=== PATIENT | male | born 1945 | race Caucasian/White ===

== ENCOUNTER → 2023-10-14 10:45 | Outpatient (REF) | payer OTHER, SELFPAY | LOC: DHCBC MAIN 10:45 | PROVIDERS: ATTENDING PHYSICIAN Internal Medicine; FAMILY PHYSICIAN Family Medicine | DX: R00.0 Tachycardia, unspecified (principal); I35.0 Nonrheumatic aortic (valve) stenosis; I10 Essential (primary) hypertension | CPT/HCPCS: 93306 ==

== ENCOUNTER 2024-02-22 21:21 | Inpatient (IN) | payer OTHER, SELFPAY ==
[2024-02-22 18:13] VITALS: BP 143/89
[2024-02-22 18:22] VITALS: BP 150/92
--- NOTE | 2024-02-22 18:29 | ED.GENMED ---
History of Present Illness
General
Chief Complaint: Breathing Problem
Source: patient
Time Seen by Provider: 02/22/24 18:21
History of Present Illness
History of Present Illness:
78-year-old male with past medical history of aortic stenosis, hypertension, ani-nyisebr-hjfjsbhlh diabetes presenting to the emergency department for evaluation of exertional dyspnea and shortness of breath that started since 430 this morning
described to be waxing and waning but more constant over the last few hours and associated with some fatigue. Patient contacted his ct technologist office, Dr. Cantrell earlier this morning, and they report that the staff at the [facility] did not seem to
be too concerned so did not have any recommendations for the patient. He went to the dentist following this and took a nap upon getting home but when he awoke he felt more short of breath which is why he presented to the ER. Patient denies any
chest pain, diaphoresis, lower extremity edema, pleurisy or hemoptysis. He does note over the last few weeks he has had some very trace swelling in the bilateral ankles and also notes a very slight cough over the last couple of days as well but no
infectious symptoms.
Past History
Past History
ED Past Medical History: Cancer (SCC), HTN, NIDDM and Valvular disease
ED Past Surgical History: Other
Social History
Tobacco: Non-smoker
Alcohol: None
Drug: None
Personal:
Living: with family
Review of Systems
Review of Systems
All Other Systems: ROS reviewed and negative except as documented in HPI and ROS
Phy Exam
Physical Exam
Physical Exam:
GENERAL: Alert , in no apparent distress
EYE: conjunctiva clear
NECK: Supple
ENT: o/p clr, mmm.
CARDIAC: Tachycardic rate and rhythm with rates between 116 and 122 bpm, systolic murmur at the right second intercostal space
LUNGS: Clear breath sounds bilaterally, no acute respiratory distress, no wheezes/rales/rhonchi
NEUROLOGICAL: Alert and oriented
SKIN: Warm and dry, skin intact.
MUSCULOSKELETAL: well perfused. Very trace nonpitting edema to the bilateral ankles. No tenderness in bilateral gastrocnemius
PSYCH: Normal and appropriate interaction.
Scores
Heart Failure Risk
Heart Failure Risk Score: Not Applicable
Heart Score for Chest Pain Patients
STEMI patient?: Not applicable
Withdrawal Assessment of Alcohol
Withdrawal Assessment Completed?: Not applicable
Course
Orders/Labs/Results
Orders:
Orders
02/22/24 Breakfast
1800 calorie (15 carb) Diabetic
Fluid Restriction: 1200 mL/day (40 oz)
Diabetic Diet: Sodium, 2 Gram
Cholesterol Lowering
02/22/24 18:13
Electrocardiogram (*1) Urgent
Reason for Study: Shortness of Breath
EKG- Treatment ONCE
02/22/24 18:30
CT Chest Pe Study Urgent
Comment:
Reason For Exam: JADE, tachycardia
02/22/24 19:14
Basic Metabolic Panel Urgent
Complete Blood Count/With Diff Urgent
NT-proBNP Urgent
Troponin I Urgent
02/22/24 19:57
Furosemide [Lasix] 40 mg IV NOW STA
02/22/24 19:59
Heparin 4,000 units IV NOW STA
02/22/24 20:00
Heparin 40177 Units/250 ml 25,000 units in 250 ml IV PER PROTOCOL
Weight to be used for heparin protocol in kilograms (kg):: 85.1
Protocol:: Cardiac Tx/Acute Coronary
PTT Goal Range to be used:: PTT 73 to 111 seconds
Order type:: Initial
INITIAL Infusion Dose (UNITS/KG/hr) & then follow protocol:: 12 units/kg/hr
Infusion Dose in UNITS/hr & then follow protocol (UNITS/hr):: 1,000
INFUSION RATE in mL/hr & then follow protocol (mL/hr):: 10
PTT less than or equal to 64 seconds:: Increase rate by 200 units/hr (+ 2 mL/hr)
PTT 64.1 to 72.9 seconds:: Increase rate by 100 units/hr (+ 1 mL/hr)
PTT 73 to 111 seconds:: Target Range. No change in rate.
PTT 111.1 to 130.9 seconds:: Decrease rate by 100 units/hr (- 1 mL/hr)
PTT 131 to 199.9 seconds:: HOLD for 1 hr. Then decrease rate by 200 units/hr (- 2 mL/hr)
PTT greater than or equal to 200 seconds:: HOLD for 2 hrs & Notify Provider. Then decrease by 200 units/hr (-
2 mL/hr)
Lab follow-up:: Each change, PTT q6h until 2 consecutive are therapeutic. Then PTT
daily.
Nursing to Place Non Medication Order As Directed
Physician Order: PTT 6 hours after initial start of Heparin infusion
Above order entered?: Yes
02/22/24 20:09
PTT Urgent
Comment: Obtain baseline before beginning heparin infusion if not already collected
02/22/24 20:35
Aspirin Chewable [Low Strength Aspirin] 324 mg PO NOW STA
02/22/24 20:53
Admit/Transfer Patient As Directed
Co-Sign Provider:
Level of Care: Inpatient admission
Assign to:: Telemetry
Physician / Group: brandie
Diagnosis: pulmonary edema
Reason for Telemetry: Subacute Heart Failure
Date to Stop Telemetry: 02/24/24
Time to Stop Telemetry: 11:00
Reason for Hospitalization: pulmonary edema
Expected length of stay greater than two midnights?: Yes
ELOS- Estimated Length of Stay in days: 3
I certify the patient meets the requirements for IP care: Yes
PRN Pain Medication Management As Directed
May give lesser potent ordered pain med per pt: Yes
preference::
Protocol:: Medication orders for pain may be administered in a
manner that supports deferring to patient preference
when the pt is:
- Requesting an ordered lesser potent pain medication.
Least to most potent pain medications are defined
as: acetaminophen < NSAID < tramadol < opioids
(morphine, oxycodone, hydromorphone).
- Requesting a lesser dose of the same medication IF
ORDERED.
- Requesting a less intrusive route of administration
if both routes are prescribed by the provider (PO <
IV).
02/22/24 20:55
Code Status As Directed
Resuscitation Status: Full Code
02/22/24 21:00
Flush (0.9% Sodium Chloride) [Flush (Nss)] See Dose Instructions IV PER PROTOCOL
02/22/24 21:58
Acetaminophen with Codeine [Tylenol #3] 1 tablet PO Q8H
Dextrose 50%-Water [Dextrose 50% Syringe] 12.5 grams IV [id number] PRN
Glucagon [GlucaGen] 1 mg IM PRN PRN
02/22/24 21:58
CARDIOLOGY CONSULT Routine
Consulting Provider: Shanda Valdes
Was physician already notified: Yes
HF DIETARY CONSULT Routine
HF EDUCATOR CONSULT Routine
Comment:
Heparin Protocol- PTT Orders As Directed
PTT per Heparin protocol: -Obtain CBC and baseline PTT - if not already collected.
-Obtain PTT 6 hours from start of infusion. Then, every 6 hours until 2 consecutive
PTT's are therapeutic. Then, PTT Daily.
-With each rate change, obtain PTT every 6 hours until 2 consecutive PTT's are
therapeutic. Then, PTT Daily.
Activity As Directed
Activity Level: As Tolerated
Bedside Glucose Monitoring As Directed
Frequency: AC&HS
Additional Instructions:: Change to q6h if pt on TPN, tube feeding or not eating
Intake/ Output As Directed
Frequency: Per unit guidelines
Notify MD As Directed
Notify physician if: PTT is greater than or equal to 200.
Patient Education As Directed
Type: CHF folder
Comment: give on admission. Document in Interdisciplinary Education record
Sleep Apnea Assessment by RN As Directed
Comment:
Physician Instructions:
Vital Signs As Directed
Frequency: Other
Additional Instructions:: Q12 or per unit guidelines if more frequent.
Weight As Directed
Frequency: Daily
Type of Scale: Standing Scale
Comment: Daily morning weight. If unable to stand, use balanced bed scale.
Weight As Directed
Frequency: Once
Type of Scale: Standing Scale
Comment: Upon Admission. If unable to stand, use balanced bed scale.
Pulse Ox/cont/shift [RESP] Routine
Quantity: 1
Special Instructions: Daily pulse oximetry at rest. If greater than 92% at rest also obtain pulse oximetry
while ambulating as tolerated.
Ot Eval And Treat Routine
Pt Eval And Treat Routine
Activity Level: As Tolerated
02/22/24 22:00
Aspirin Low Dose EC [Aspir Low (Enteric Coated)] 81 mg PO HS
Latanoprost [Xalatan Ophthalmic Solution] 1 drop BOTH EYES HS
simvastatin 40 mg PO HS
02/23/24 01:00
Troponin I Q6H
Comment: at admission & every 6 hours x 2 (3 total), ECG to be done with each level
02/23/24 06:00
Basic Metabolic Panel IN AM
Cardiovascular Evaluation IN AM
Complete Blood Count/No Diff IN AM
Glycohemoglobin (HgbA1c) IN AM
Klfxd-Bjft-Bnjmhdf IN AM
Magnesium IN AM
TSH Reflex To Free T4 IN AM
02/23/24 07:00
Troponin I Q6H
Comment: at admission & every 6 hours x 2 (3 total), ECG to be done with each level
02/23/24 07:30
Insulin Aspart Corrective Low [Novolog Flexpen-Low Resistance] See Protocol SC AC
02/23/24 08:00
Furosemide [Lasix] 40 mg IV BID AT 0800,1600
Repaglinide [Prandin] 2 mg PO DAILY
02/23/24 12:00
Venlafaxine Extended Release [Effexor Xr] 150 mg PO NOON
02/23/24 18:00
Cyanocobalamin [Vitamin B-12] 1,000 mcg PO QPM
02/24/24 06:00
Basic Metabolic Panel IN AM
Complete Blood Count/No Diff IN AM
Complete Blood Count/No Diff Q2D
Comment: notify provider: Platelet count < 130,000 or decrease by 50% from baseline
02/24/24 11:00
DC Protocol for Telemetry ONCE
02/25/24 06:00
Basic Metabolic Panel IN AM
Complete Blood Count/No Diff IN AM
02/26/24 06:00
Complete Blood Count/No Diff IN AM
Complete Blood Count/No Diff Q2D
Comment: notify provider: Platelet count < 130,000 or decrease by 50% from baseline
02/27/24 06:00
Complete Blood Count/No Diff IN AM
02/28/24 06:00
Complete Blood Count/No Diff Q2D
Comment: notify provider: Platelet count < 130,000 or decrease by 50% from baseline
03/01/24 06:00
Complete Blood Count/No Diff Q2D
Comment: notify provider: Platelet count < 130,000 or decrease by 50% from baseline
03/03/24 06:00
Complete Blood Count/No Diff Q2D
Comment: notify provider: Platelet count < 130,000 or decrease by 50% from baseline
03/05/24 06:00
Complete Blood Count/No Diff Q2D
Comment: notify provider: Platelet count < 130,000 or decrease by 50% from baseline
03/07/24 06:00
Complete Blood Count/No Diff Q2D
Comment: notify provider: Platelet count < 130,000 or decrease by 50% from baseline
03/09/24 06:00
Complete Blood Count/No Diff Q2D
Comment: notify provider: Platelet count < 130,000 or decrease by 50% from baseline
Abnormal Lab Results
02/22/24
19:14
RBC 3.86 L 10^6/uL
(4.70-6.10)
Hgb 12.4 L g/dL
(13.0-18.0)
Hct 37.5 L %
(39.0-52.0)
MCV 97.2 H fL
(80.0-94.0)
MCH 32.1 H pg
(27.0-31.0)
MPV 10.7 H fL
(7.4-10.4)
Absolute Lymphs (auto) 1.0 L 10^3/uL
(1.2-3.4)
Lymphocytes % 15.0 L %
(20.5-51.1)
Chloride 109 H mmol/L
(98-107)
Glucose 129 H mg/dl
(70-99)
Troponin I 0.098 H* ng/ml
02/22/24 19:14
02/22/24 19:14
Vital Signs
Initial and Last Documented VS:
Initial Vital Signs
Temp Pulse Resp BP Pulse Ox
98.6 F 120 24 143/89 97
02/22/24 18:13 02/22/24 18:13 02/22/24 18:13 02/22/24 18:13 02/22/24 18:13
Last Documented Vital Signs
Temp Pulse Resp BP Pulse Ox
98.6 F 124 32 114/62 94
02/22/24 18:13 02/22/24 21:15 02/22/24 21:15 02/22/24 20:05 02/22/24 21:15
Laborer Cheesemaking consulted with Physician
Laborer Cheesemaking consulted with physician?: Yes
Name of Physician Consulted: Екатерина
MDM/Problems Addressed
Differential Diagnosis Includes:
Atypical ACS, PE, CHF
MDM/Problems Addressed:
78-year-old male presenting to the emergency department for evaluation of shortness of breath that has been ongoing since 430 this morning, had been transient but now constant. Arrives to the ER tachycardic (patient reports this is normal for him)
and does appear somewhat dyspneic during his exam. Lungs clear. Will obtain CT of the chest given tachycardia and worsening exertional shortness of breath. EKG does show some ischemic changes in the lateral leads. Troponin ordered. Disposition
pending
Chronic conditions affecting care: Other (Aortic stenosis, tachycardia)
*Radiology
Radiology exam reviewed: radiology read reviewed
*Pulse Oximetry
Patient hypoxic: no
*EKG
Interpreted by ED Provider?: Yes
Comparison EKG: no comparison EKG present
Heart Rate: 120
Rate: tachycardiac
Rhythm: sinus
[place]: left axis deviation
Ischemia: T-wave inversion (Lateral leads)
*Butane Compressor Operator Interpretation
Rate: tachycardiac
Rhythm: sinus
*Critical Care Note
Total Time (30-74mins, 75-104mins- exclusive of procedures): 32
comment:
Critical care statement: A total of 32 minutes of critical care time was provided for this patient. This includes management of unstable vital signs, evaluation of the patient at bedside, reviewing the patient's pertinent medical records, discussion
with consultants, review of old EKGs and review of pertinent medical records. This time with separate from time utilized to perform the aforementioned documented procedures
Data Reviewed
Review of Other/Old Records Reveals: Records
Comment
Comment:
Patient with no previous EKGs on record however does have a echocardiogram done in October 2023 which shows ejection fraction of 55 to 60%. There is stage II diastolic dysfunction. There is also moderate to severe aortic stenosis.
Patient Management
Discussion with other providers: Hospitalist
Escalation/DeEscalation of care consider admission/obs:
Patient's labs reveal a BNP of greater than 10,000 and a troponin elevation of 0.098. Possibly demand ischemia however given patient's T wave inversions in the lateral leads cannot fully exclude NSTEMI. Heparin bolus and drip were ordered in
addition to 324 mg of aspirin and 40 mL of Lasix IV. Patient CT scan is negative for PE but does show significant pulmonary edema and bilateral pleural effusions. Patient to be admitted to hospitalist service. Cardiology to be consulted. He is
otherwise remains hemodynamically stable.
ED Attending Note
-
Portions of this chart may have been created with voice recognition software.� Occasional wrong word or��sound alike� substitutions may have occurred due to the inherent limitations of voice recognition software.
Discharge Plan
Departure
Patient Disposition: Admit
Date of Disposition: 02/22/24
Time of Disposition: 20:26
Presentation/result/management discussed w/ accepting MD/DO: Hospitalist
Discharge Problem:
Pulmonary edema, Acute non-ST elevation myocardial infarction (NSTEMI)
Interventions
Interventions:
*Risk Screen - Suicide Last Done: 02/22/24 19:08
*General Assessment Last Done: 02/22/24 19:08
*Neglect/Abuse Screening Last Done: 02/22/24 19:08
*ED COVID-19 Vaccine History Last Done: 02/22/24 19:08
ED- Cardiac Assessment Last Done: 02/22/24 19:08
ED- Pulmonary Assessment Last Done: 02/22/24 19:08
[2024-02-22 19:00] VITALS: BP 106/57
[2024-02-22 19:08] VITALS: BMI 23.4
[2024-02-22 19:20] LABS: % Basophils 0.6 % (0-2); % Eosinophils 3.2 % (0-6); % Immature Granulocytes 0.3 % (0-0.5); % Monocytes 8.6 % (1.7-9.3); % Neutrophils 72.3 % (42.2-75.2); Absolute Eosinophils 0.2 10^3/uL (0-0.7); Absolute Monocytes 0.6 10^3/uL (0.1-0.6); Hematocrit 37.5 % (39.0-52.0); Hemoglobin 12.4 g/dL (13.0-18.0); Mean Corp Hgb Conc. 33.1 g/dL (33.0-37.0); Mean Corpuscular Hgb 32.1 pg (27.0-31.0); Mean Corpuscular Volume 97.2 fL (80.0-94.0); Mean Platelet Volume 10.7 fL (7.4-10.4); Nucleated Red Blood Cells % 0 % (-); Platelet Count 235 10^3/uL (130-400); Red Blood Cell Count 3.86 10^6/uL (4.70-6.10); Red Cell Dist. Width 12.9 % (11.5-14.5)
[2024-02-22 19:41] LABS: Blood Urea Nitrogen 17 mg/dl (9-20); Calcium 8.7 mg/dl (8.4-10.2); Carbon Dioxide 25 mmol/L (22-30); Chloride 109 mmol/L (98-107); Estimated Creatinine Clearance 102 ml/min; Glucose 129 mg/dl (70-99); Potassium 4.5 mmol/L (3.5-5.1); Sodium 138 mmol/L (135-145); eGFR > 60.00
[2024-02-22 19:55] LABS: NT-proBNP 10100 pg/ml; Troponin I 0.098 ng/ml
[2024-02-22 20:05] VITALS: BP 114/62
--- NOTE | 2024-02-22 20:27 | HPS.HSE ---
Addendum entered and electronically signed by Franklin Garnett DO 02/22/24 21:29:
Patient seen and examined independently. Agree with findings and plan as set forth by LADONNA Zaman.
Patient is a 78y M with PMH significant for hypertension, DM-II and aortic stenosis who presents to ED complaining of SOB. Patient states that he has felt increasing SOB over the past 24 hours. His symptoms woek him from sleep around 4:30 AM.
He had recurrent dyspnea throughout the day with exertion and also this afternoon when trying to lie flat for a nap.
He denies any chest pain, palpitations, tightness, etc. He denies any LE edema, abdominal distention or weight gain.
Patient denies any prior h/o similar symptoms.
He is not on diuretic regimen as an outpatient.
Ass:
Acute HFpEF
Moderate - Severe Aortic Stenosis
Abnormal Troponin - Unclear Etiology
Benign Hypertension
DM-II
Dyslipidemia
Obesity due to excess calories
ROSALBA
Plan:
Admit for further evaluation and treatment.
Feeling better in the ED after IV Lasix.
Continue IV Lasix BID and follow daily weights, I/Os, etc.
Cardiology evaluation.
Had Echo done in October 2023 with normal LVEF and moderate - severe .
Follow troponin to peak.
? non-ischemic myocardial injury secondary to CHF versus ACS?
Started on IV heparin gtt in the ED.
ASA daily, continue statin, etc.
Follow for continued clinical improvement.
Stop pioglitazone permanently.
Hold other oral DM agents acutely.
Cover with SSI for now.
Would be good candidate for SGLT-2 inhibitor moving forward.
Original Note:
Family Physician
-
Family Physician: Simon Amaya
Chief Complaint
-
sob
History of Present Illness
78-year-old male with past medical history of aortic stenosis, hypertension, ndp-bswioxz-kbjshppot diabetes presenting to the emergency department for evaluation of exertional dyspnea and shortness of breath as well as orthopnea since this early
morning. sob woke him up. he tried to take nap this afternoon and he felt sob while sleeping. stated some ankle swelling. denied weight gain. sob worse with exertion. stated some mild cough with productive sputum. denied chest pain. denied fever,
chills, congestion. denied DEJESUS, dizzy or syncopal episode. denied abdominal pain,n,v,d. denied dysuria or hematuria.
elevated BNP and trop in ER. received Lasix in ER. also initiated on heparin drip. admitting for further management.
Medical History
Past Medical History
Past Medical History: Reports Other
Additional Past Medical History:
Dyslipidemia
Hypertension
Obstructive sleep apnea
Type 2 diabetes
Incisional hernia depression
Prostate cancer
Tongue cancer
Past Surgical History: Reports Other
Additional Past Surgical History:
Prostatectomy
Colon resection
Polypectomy
Squamous cell cancer of tongue resection
Cataract extraction
[place] teeth extraction
Social History
Tobacco: Non-smoker
Alcohol: None
Drug: None
Personal:
Living: With Family
Family History
Family History: Not pertinent
Allergies / Home Medications
Allergies reflects when Allergies were last updated in [facility].
Home Medications with original date entered in [facility]
Allergy/Medication List:
Allergies
Allergy/AdvReac Type Severity Reaction Status Date / Time
No Known Allergies Allergy Verified 02/22/24 18:12
Home Medications
acetaminophen 300 mg-codeine 30 mg tablet 1 tab PO Q8H 02/22/24
acetaminophen 500 mg tablet (Tylenol Extra Strength) 500 mg PO Q6HPRN PRN mild pain 02/22/24
aspirin 81 mg tablet,delayed release 81 mg PO HS 02/22/24
cyanocobalamin (vitamin B-12) 1,000 mcg tablet 1,000 mcg PO QPM 02/22/24
ergocalciferol (vitamin D2) 1,250 mcg (50,000 unit) capsule (Vitamin D2) 1,250 mcg PO WE 02/22/24
latanoprost 0.005 % eye drops 1 drp BOTH EYES HS 02/22/24
metformin 1,000 mg tablet 1,000 mg PO QPM 02/22/24
pioglitazone 45 mg tablet 45 mg PO DAILY 02/22/24
ramipril 2.5 mg capsule 2.5 mg PO DAILY 02/22/24
repaglinide 0.5 mg tablet 0.5 mg PO TIDPRN PRN blood sugar 02/22/24
repaglinide 2 mg tablet 2 mg PO DAILY 02/22/24
simvastatin 40 mg tablet 40 mg PO HS 02/22/24
testosterone 2 pump topical DAILY 02/22/24
venlafaxine 150 mg capsule,extended release 24 hr 150 mg PO NOON 02/22/24
Review of Systems
-
Constitutional: Reports No Symptoms
EENT: Reports No Symptoms
Respiratory: Reports Cough and Trouble Breathing
Cardiac: Reports No Symptoms
Abdomen/GI: Reports No Symptoms
: Reports No Symptoms
Musculoskeletal: Reports Edema (ankle edema)
Skin: Reports No Symptoms
Neurological: Reports No Symptoms
Endocrine: Reports No Symptoms
Hematologic/Lymphatic: Reports No Symptoms
Psych: Reports No Symptoms
Physical Exam
Vital Signs
Vital Signs
Temp Pulse Resp BP Pulse Ox
98.6 F 104 20 106/57 96
02/22/24 18:13 02/22/24 19:00 02/22/24 19:00 02/22/24 19:00 02/22/24 19:08
Physical Exam
General: Well Developed, Well Nourished and No Apparent Distress
HEENT: NormoCephalic, Moist mucous membranes and Atraumatic
Respiratory: Clear and Decreased Breath Sounds
Cardiac: S1/S2 and Regular Rhythm; No Murmur or Rub
GI: Soft, Non Tender, Non Distended and Normal Bowel Sounds; No Organomegaly
Rectal: Deferred by Provider
Musculoskeletal: No Clubbing, No Cyanosis and Other (ankle edema)
Skin: No Rash
Neuro: AO x 3 and Nonfocal/grossly intact
Psych: Calm
Laboratory Results
-
02/22/24 19:14
02/22/24 19:14
Laboratory Results
Troponin I 0.098 ng/ml H* 02/22/24 19:14
Data Reviewed
-
Diagnostic Radiology: Report Reviewed by me
Lab Data: Labs Reviewed by me
Impression/Plan
-
#sob likely from pulmonary edema
#hxt of
-BNP>[id number]
-chest CT negative for pulmonary embolism.Findings of pulmonary edema with bilateral pleural effusions.
-recent with ECHO with EF of 55-60%,moderate severe
-IV Lasix in ER
-Lasix 40 bid continued
-strict I &O
-daily weight
-fluid restriction
-cardiology consulted
#r/o NSTEMI
-denied chest pain
-trop 0.098
-eKg with sinus Tachycardia with T wave inversion
-on heparin drip
-trend trop
#type 2 Dm
-sliding scale
-hold metformin, Actos,repaglinide
-CHO diet
#essential htn
-ramipril continued with hold parameters
#HLD
-statin continued
#depression
-venlafaxine continued
#DVT prophylaxis
-heparin drip
#CODE status
-full code
[2024-02-22 20:29] LABS: APTT 29.8 Sec (23.4-35.0)
[2024-02-22] MEDS: LOW STRENGTH ASPIRIN 324 MG PO (20:45)
[2024-02-22] MEDS: LASIX 40 MG IV (20:46)
[2024-02-22] MEDS: HEPARIN 4000 UNITS IV (20:46)
[2024-02-22] MEDS: FLUSH (NSS) 1 FLUSH IV (21:13)
[2024-02-22] MEDS: HEPARIN 25000 UNITS/250 ML IV (21:14)
[2024-02-22 22:48] VITALS: BP 119/77; BMI 22.3
[2024-02-22] MEDS: ASPIR LOW (ENTERIC COATED) PO (22:48)
[2024-02-22] MEDS: TYLENOL #3 1 TABLET PO (22:48)
[2024-02-22] MEDS: XALATAN OPHTHALMIC SOLUTION 1 DROP BOTH EYES (22:55)
[2024-02-23] VITALS (9 sets, daily range): BP systolic 113–125; BP diastolic 65–77; PULSE 109–112; O2SAT 94–95; BMI 21.8
[2024-02-23 01:33] LABS: Troponin I 0.098 ng/ml
--- NOTE | 2024-02-23 03:30 | PTCARENOTE ---
Patient with some minimal bleeding to his gums. No laceration noted. No blood in throat. Patient reports he had a dental cleaning earlier in the day. Patient on Heparin gtt for elevated Troponin. LADONNA Yoo notified. No new orders received.
Will monitor.
[2024-02-23 04:39] LABS: APTT 44.2 Sec (23.4-35.0)
[2024-02-23 06:49] LABS: Hematocrit 35.2 % (39.0-52.0); Mean Corp Hgb Conc. 34.1 g/dL (33.0-37.0); Mean Corpuscular Hgb 33.1 pg (27.0-31.0); Mean Corpuscular Volume 97.2 fL (80.0-94.0); Mean Platelet Volume 10.6 fL (7.4-10.4); Platelet Count 193 10^3/uL (130-400); Red Blood Cell Count 3.62 10^6/uL (4.70-6.10); Red Cell Dist. Width 12.6 % (11.5-14.5); White Blood Cell Count 7.2 10^3/uL (4.8-10.8)
[2024-02-23 07:05] LABS: APTT 56.3 Sec (23.4-35.0)
[2024-02-23 07:19] LABS: Troponin I 0.087 ng/ml
[2024-02-23 07:54] LABS: Glucose - Point of Care 118 mg/dl (70-99)
[2024-02-23 08:16] LABS: ALT (SGPT) 17 U/L (0-50); AST (SGOT) 22 U/L (17-59); Albumin 3.6 g/dl (3.5-5.0); Alkaline Phosphatase 112 U/L (38-126); Blood Urea Nitrogen 18 mg/dl (9-20); Calcium 8.6 mg/dl (8.4-10.2); Carbon Dioxide 21 mmol/L (22-30); Chloride 108 mmol/L (98-107); Estimated Creatinine Clearance 74 ml/min; Glucose 135 mg/dl (70-99); HDL Cholesterol 48 mg/dl; LDL Cholesterol, Calculated 23 mg/dl; Magnesium 1.3 mg/dl (1.6-2.3); Sodium 138 mmol/L (135-145); Total Bilirubin 0.5 mg/dl (0.2-1.3); Total Cholesterol 88 mg/dl (50-199); Total Protein 5.8 g/dl (6.3-8.2); Triglyceride 86 mg/dl (10-149); Very Low Density Lipoprotein 17 mg/dl (0-30); eGFR > 60.00
[2024-02-23 08:27] LABS: Direct Bilirubin 0.2 mg/dl (0.0-0.4)
[2024-02-23 08:35] LABS: Glycohemoglobin (HgbA1c) 6.1 % (4.0-5.6)
[2024-02-23 08:42] LABS: TSH Reflex To Free T4 3.14 uIU/ml (0.47-4.68)
[2024-02-23] MEDS: MAGNESIUM SULFATE 50 IV (08:47)
[2024-02-23] MEDS: ALTACE 2.5 MG PO (08:48)
[2024-02-23] MEDS: TYLENOL #3 1 TABLET PO ×3 (08:49→21:00)
[2024-02-23] MEDS: LASIX 40 MG IV (08:51)
--- NOTE | 2024-02-23 09:54 | CON.CAR ---
Addendum entered and electronically signed by Baldev Ladd MD 02/23/24 10:45:
PMH includes
Hypertension
DM
Dyslipidemia
ROSALBA
Original Note:
Consultation
Consultation Request
Date/Time Consultation Requested: 02/23/2024 830
Date/Time Consultation Performed: 02/23/2024 930
Requesting Provider: Hospitalist
Performing Provider: Dr. Ladd
Reason for Consultation: Shortness of breath, abnormal troponin
Medical History
-
History of Present Illness:
Primary presales consultant is Dr Cantrell
78 year old with moderate to severe side with a mean gradient 37mmHg by echo 10/2023 who present with SOB. Nght before ad tami whe woke from sleep with SOB which resolved after he got up. He felt ok during the day but then wnet to take a nap a
woke again with SOB. ECG with anterolateret T inversions, Troponin 0.098. Patietn with suspected CHF and treated with diuretic and feels better. SOB improved and he can now lay flat. He had a dry cough yesterday. No fever. No CP or edema. No palp.
No history of CAD
Chest CT performed 02/22/2024 with no evidence of PE. There was suggestion of pulmonary edema and bilateral pleural effusions
PMH
Mod to severe with mean gradient 37mmHg
SH - at bedside
FH neg for CAD
Past Medical History
Past Medical History: Other (above)
Social History
Personal:
Living: With Family
Allergies / Home Medications
Allergy/AdvReac Type Severity Reaction Status Date / Time
No Known Allergies Allergy Verified 02/22/24 18:12
�Medication �Instructions �Recorded �Confirmed �Type
acetaminophen 300 mg-codeine 30 mg 1 tab PO Q8H 02/22/24 02/22/24 History
tablet
acetaminophen 500 mg tablet 500 mg PO Q6HPRN PRN mild pain 02/22/24 02/22/24 History
(Tylenol Extra Strength)
aspirin 81 mg tablet,delayed 81 mg PO HS 02/22/24 02/22/24 History
release
cyanocobalamin (vitamin B-12) 1,000 mcg PO QPM 02/22/24 02/22/24 History
1,000 mcg tablet
ergocalciferol (vitamin D2) 1,250 1,250 mcg PO WE 02/22/24 02/22/24 History
mcg (50,000 unit) capsule (Vitamin
D2)
latanoprost 0.005 % eye drops 1 drp BOTH EYES HS 02/22/24 02/22/24 History
metformin 1,000 mg tablet 1,000 mg PO QPM 02/22/24 02/22/24 History
pioglitazone 45 mg tablet 45 mg PO DAILY 02/22/24 02/22/24 History
ramipril 2.5 mg capsule 2.5 mg PO DAILY 02/22/24 02/22/24 History
repaglinide 0.5 mg tablet 0.5 mg PO TIDPRN PRN blood sugar 02/22/24 02/22/24 History
repaglinide 2 mg tablet 2 mg PO DAILY 02/22/24 02/22/24 History
simvastatin 40 mg tablet 40 mg PO HS 02/22/24 02/22/24 History
testosterone 2 pump topical DAILY 02/22/24 02/22/24 History
venlafaxine 150 mg 150 mg PO NOON 02/22/24 02/22/24 History
capsule,extended release 24 hr
Review of Systems
-
All other systems: Negative unless noted
Physical Exam
Vital Signs
Temp Pulse Resp BP Pulse Ox
98.1 F 119 16 117/75 94
02/23/24 07:57 02/23/24 08:48 02/23/24 07:57 02/23/24 08:48 02/23/24 07:57
Lab Results
02/23/24 06:37
02/23/24 06:36
Troponin I 0.087 ng/ml H* 02/23/24 06:37
Nxg-E-Nxscstuvpyw Pept 99100 pg/ml 02/22/24 19:14
Physical Exam
General: Well Developed, Well Nourished and No Apparent Distress
HEENT: Normocephalic, Anicteric, Moist Mucous Membranes and Other (external ear and nose exam unremarkable. EOMI, PEERL)
Respiratory: Clear (no whhezes rales or rhonchi)
Cardiac: Regular Rhythm (2/6 systolic murmur) and Other
GI: Soft, Non Tender, Non Distended and Normal Bowel Sounds
Musculoskeletal: No Clubbing, No Cyanosis and No Edema
Skin: Warm, Dry and Rash (none)
Neuro: Awake, Alert and Oriented
Impression / Plan
-
Shortness of breath-presentation suggestive of heart failure with orthopnea/PND, elevated proBNP and chest CT suggesting pulmonary edema and bilateral pleural effusions. Patient responding to diuresis
-Continue diuresis with IV Lasix
-Most recent echo in October 2020 normal ventricular function and moderate to severe aortic stenosis with mean gradient of 37 mmHg. Patient may have developed heart failure related to symptomatic severe aortic stenosis.
-Recommend cardiac catheterization to evaluate for obstructive coronary artery disease as an also to further assess aortic valve. Additional recommendations based on results. Reviewed with the patient and his at the bedside. He is in
agreement with proceeding with catheterization.
-Plan for cardiac catheterization later today
.
Abnormal troponin. Exact etiology unclear. May be related to combination of heart failure and severe aortic stenosis. Also possible patient has underlying obstructive coronary artery disease cannot exclude ACS.
-Will continue with heparin already initiated by primary team
-Aspirin
-Plan for cardiac catheterization this admission
.
Aortic stenosis. Moderate to severe by most recent echo. Now with development of heart failure concern for severe aortic stenosis contributing to heart failure. Which would be an indication to evaluate for aortic valve replacement. This issue
was reviewed with the patient
-Continue treatment of heart failure as noted above
-For catheterization as noted above
.
Pleural effusions. Will need to monitor response to diuretic
Data Reviewed
-
EKG: Report Reviewed by me
Radiology: Report Reviewed by me
Medical Tests (Nuc Med, Echo etc): Report Reviewed by me
Labs: Labs Reviewed by me
[2024-02-23] MEDS: LOW STRENGTH ASPIRIN 81 MG PO (11:23)
[2024-02-23 11:49] LABS: Glucose - Point of Care 152 mg/dl (70-99)
--- NOTE | 2024-02-23 11:55 | W.PN.HOSP.TC ---
Today's Communication/Plan
-
Monitor vital signs
see plan
Cardiac catheterization today
Continue with IV heparin
Continue with diuresis
Assessment / Plan
Assessment / Plan
General: Well Developed, Well Nourished and No Apparent Distress
HEENT: NormoCephalic, Moist mucous membranes and Atraumatic
Respiratory: Clear and Decreased Breath Sounds
Cardiac: S1/S2 and Regular Rhythm; No Murmur or Rub
GI: Soft, Non Tender, Non Distended and Normal Bowel Sounds
Musculoskeletal: No Clubbing, No Cyanosis and Other (ankle edema)
Neuro: AO x 3 and Nonfocal/grossly intact
Psych: Calm
sob secondary to acute pulmonary edema secondary to acute on chronic CHF with preserved ejection fraction likely secondary to moderate to severe aortic stenosis
#hxt of
-BNP>26537
-chest CT negative for pulmonary embolism.Findings of pulmonary edema with bilateral pleural effusions.
-recent with ECHO with EF of 55-60%,moderate severe
Continue with IV diuresis
Cardiology following
-strict I &O
-daily weight
-fluid restriction
check echo
Last echo 11/01 with EF 55 to 60%, stage II diastolic dysfunction. Moderate to severe aortic stenosis
Elevated troponin could likely be secondary to nonischemic myocardial injury however cannot rule out NSTEMI
-trop 0.098
-eKg with sinus Tachycardia with T wave inversion
-on heparin drip
Cardiac catheterization 02/22
Cardiology following
#type 2 Dm
-sliding scale
-hold metformin, Actos,repaglinide
-CHO diet
#essential htn
-ramipril continued with hold parameters
#HLD
-statin continued
#depression
-venlafaxine continued
#DVT prophylaxis
-heparin drip
#CODE status
-full code
I spent a total of 52 minutes with the patient or on the floor. More than 50% of this time involved counseling and coordination of care.
Anticipated Discharge: > 48 hours
Subjective/Interval History
-
Date of Service: February 23, 2024
Denies chest pain
Objective Data
-
Labs:
Laboratory Results
02/23/24 02/23/24 02/23/24
02:54 03:43 06:36
WBC
Hgb
Hct
Plt Count
APTT Cancelled 44.2 H 56.3 H
Sodium 138
Potassium 4.0
Chloride 108 H
Carbon Dioxide 21 L
BUN 18
Creatinine 0.9
Glucose 135 H
Calcium 8.6
Total Bilirubin 0.5
AST 22
ALT 17
Alkaline Phosphatase 112
02/23/24
06:37
WBC 7.2
Hgb 12.0 L
Hct 35.2 L
Plt Count 193
APTT
Sodium
Potassium
Chloride
Carbon Dioxide
BUN
Creatinine
Glucose
Calcium
Total Bilirubin
AST
ALT
Alkaline Phosphatase
Vital Signs:
Vital Signs
Temp Pulse Resp BP Pulse Ox
98.9 F 117 17 118/67 95
02/23/24 11:14 02/23/24 11:14 02/23/24 11:14 02/23/24 11:14 02/23/24 11:14
I&O
02/22/24 02/23/24 02/24/24
06:59 06:59 06:59
Intake Total 240 / 240
Output Total 2099 / 2099
Balance -1860 / -1860
--- NOTE | 2024-02-23 12:09 | PTOTSP ---
Pt presents to OT at mod I/I level with basic self care, transfers and functional mobility in room and bathroom without AD. No further skilled OT indicated at this time.
[2024-02-23] MEDS: EFFEXOR XR 150 MG PO (12:11)
[2024-02-23 13:42] LABS: APTT 48.1 Sec (23.4-35.0)
--- NOTE | 2024-02-23 15:29 | CM ---
Reviewed chart, met with patient to obtain information for assessment. Patient's was at bedside. Patient lives with his in a two story home with two steps to enter. He described himself as independent with his ADLs, personal care,
dressing, and bathing. 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 He can drive and can get to all of his appointments and do his own shopping. He has a CPAP but denied any other DME in his home.
He has never had VN services.
He has not been to a SNF
Patient has a prescription plan and uses, [facility] in [place].
Patient's provider is, Dr. Simon Brooks.
Patient stated that functionally he feels he is at baseline and should be able to return home when stable.
Plan: Case management will continue to follow and assist with discharge planning. Home when medically cleared for discharge.
[2024-02-23] MEDS: LASIX IV (16:19)
[2024-02-23 16:38] LABS: Glucose - Point of Care 108 mg/dl (70-99)
--- NOTE | 2024-02-23 18:46 | PTCARENOTE ---
Pt. returned from lab support tech at 18:20 with two nurses from lab support tech. Per their report pt. had oozing from right radial site and 2 additional mL of air were added to the R-band at bedside. Currently 13mL in place, no oozing. Small break in skin at
distal edge of R-band. Neurovascular checks intact to right hand. Pt. comfortable in bed, VS stable, Pt ordering dinner.
--- NOTE | 2024-02-23 18:58 | ITS.CL.CATH ---
[employer] - Catheterization
Cardiac Catheterization
Procedure Report:
CARDIAC CATHETERIZATION REPORT
Date of Procedure: 02/23/24
Referring: Dr. Ladd
Indication: heart failure, NSTEMI, aortic stenosis
PROCEDURE:
1. Right heart catheterization.
2. Left heart catheterization.
3. Coronary angiography.
ACCESS:
6 [place] right radial artery
6 [place] right brachial vein
CATHETERS:
1. 5 [place] balloon wedge/Henderson-Ronal.
2. 6 [place] JL3.5.
3. 6 [place] JR4.
HEMODYNAMIC DATA
AO 97/56 (74) mmHg
RA 7 mmHg
RV 39/6 (9) mmHg
PA 38/18 (27) mmHg
PCWP 19 mmHg
SaO2 91.4%
SvO2 68.3%
CO/CI 6.7/3.2 L/min/m2
SVR 805 dsc*-5
PVR 1.2 Wood units
CORONARY ANGIOGRAPHY
Dominance: right
Left Main: Large and normal.
LAD: Large vessel that gives rise to a moderate caliber D1 and wraps around the apex. There is a long segment of ~40% stenosis with heavy calcification extending from before the D1 takeoff down to the mid-vessel. The proximal portion of D1 is also
heavily calcified with moderate stenosis.
Circumflex: large vessel that gives rise to a moderate caliber OM1, small OM2, and large LPL branch. There is severe stenosis in the OM2 which is a small ~1.5mm vessel and otherwise mild disease elsewhere.
RCA: moderate caliber vessel that gives rise to a large RPDA and small RPL system. There is a 40% ostial stenosis with reduction in contrast reflux and mild pressure dampening noted.
Closure Device: TR band
Radiation dose (mGy): 289.97
DAP (cm2.Gy): 31.5367
Fluoroscopy time (minutes): 5
CONCLUSIONS:
1. Mildly elevated biventricular filling pressures, mild pulmonary hypertension, and normal cardiac output and index
2. Non-critical calcific coronary artery disease in a right dominant system
RECOMMENDATIONS:
1. Expectant management after cardiac catheterization via right approach, with limited weight bearing on the right wrist for one week.
2. Aggressive secondary prevention of CAD with ASA and high intensity statin.
3. Inpatient echo
4. Transition to oral diuretic with goal even to -500cc negative, trial 40 PO lasix tomorrow
5. Expedited outpatient workup for TAVR, favoring balloon expandible valve given possible need for future coronary intervention
Copy to: Dr. Alf Cantrell MD, PhD
Signed: Gabriele Ching MD, PhD
[2024-02-23] MEDS: VITAMIN B-12 1000 MCG PO (21:00)
[2024-02-23] MEDS: ASPIR LOW (ENTERIC COATED) 81 MG PO (21:00)
[2024-02-23] MEDS: LIPITOR 40 MG PO (21:00)
[2024-02-23 22:10] LABS: Glucose - Point of Care 150 mg/dl (70-99)
[2024-02-23] MEDS: XALATAN OPHTHALMIC SOLUTION 1 DROP BOTH EYES (22:32)
[2024-02-24 03:38] VITALS: BP 99/58
[2024-02-24 06:00] VITALS: BMI 21.3
[2024-02-24] MEDS: TYLENOL #3 1 TABLET PO ×2 (06:29→15:12)
[2024-02-24 07:03] LABS: Glucose - Point of Care 132 mg/dl (70-99)
[2024-02-24 07:31] VITALS: BP 111/62
[2024-02-24 07:52] LABS: Hematocrit 34.9 % (39.0-52.0); Hemoglobin 11.9 g/dL (13.0-18.0); Mean Corp Hgb Conc. 34.1 g/dL (33.0-37.0); Mean Corpuscular Hgb 33.1 pg (27.0-31.0); Mean Corpuscular Volume 96.9 fL (80.0-94.0); Mean Platelet Volume 10.8 fL (7.4-10.4); Platelet Count 186 10^3/uL (130-400); Red Cell Dist. Width 12.8 % (11.5-14.5); White Blood Cell Count 5.8 10^3/uL (4.8-10.8)
[2024-02-24] MEDS: ALTACE 2.5 MG PO (08:05)
[2024-02-24] MEDS: LASIX 40 MG PO (08:06)
[2024-02-24 08:11] LABS: Blood Urea Nitrogen 20 mg/dl (9-20); Calcium 8.5 mg/dl (8.4-10.2); Carbon Dioxide 24 mmol/L (22-30); Chloride 105 mmol/L (98-107); Estimated Creatinine Clearance 82 ml/min; Glucose 135 mg/dl (70-99); Potassium 3.9 mmol/L (3.5-5.1); Sodium 137 mmol/L (135-145); eGFR > 60.00
[2024-02-24 11:00] VITALS: BP 117/67
[2024-02-24 11:49] LABS: Glucose - Point of Care 254 mg/dl (70-99)
--- NOTE | 2024-02-24 11:52 | W.PN.HOSP.TC ---
Addendum entered and electronically signed by Devyn oMser MD 02/24/24 16:18:
Updated patient regarding lower EF.
Addendum entered and electronically signed by Devyn Moser MD 02/24/24 16:11:
Acute on chronic congestive heart failure now with reduced ejection fraction
Addendum entered and electronically signed by Devyn Moser MD 02/24/24 16:10:
Echocardiogram is now EF 30 to 35%. Discussed with cardiology and they are okay with patient being discharged and will follow-up with patient outpatient. Continue with Lasix
Time of discharge 38 minutes
Original Note:
Today's Communication/Plan
-
Monitor vital signs see plan
Awaiting echocardiogram
Cardiology to see today
Continue Lasix
Possible discharge if echo unchanged and doing well on p.o. Lasix
Assessment / Plan
Assessment / Plan
General: Well Developed, Well Nourished and No Apparent Distress
HEENT: NormoCephalic, Moist mucous membranes and Atraumatic
Respiratory: Clear and Decreased Breath Sounds
Cardiac: S1/S2 and Regular Rhythm; No Murmur or Rub
GI: Soft, Non Tender, Non Distended and Normal Bowel Sounds
Musculoskeletal: No Clubbing, No Cyanosis and Other (ankle edema)
Neuro: AO x 3 and Nonfocal/grossly intact
Psych: Calm
sob secondary to acute pulmonary edema secondary to acute on chronic CHF with preserved ejection fraction likely secondary to moderate to severe aortic stenosis
#hxt of
-BNP>85952
-chest CT negative for pulmonary embolism.Findings of pulmonary edema with bilateral pleural effusions.
-recent with ECHO with EF of 55-60%,moderate severe
Continue with diuresis; now on PO lasix
Cardiology following
-strict I &O
-daily weight
-fluid restriction
check echo pending
Last echo 11/01 with EF 55 to 60%, stage II diastolic dysfunction. Moderate to severe aortic stenosis
Elevated troponin could likely be secondary to nonischemic myocardial injury
-trop 0.098
Cardiac catheterization 02/22 without significant CAD. No intervention. Medically managed
Cardiology following
#type 2 Dm
-sliding scale
-hold metformin, Actos,repaglinide. DC pioglitazone.
-CHO diet
#essential htn
-ramipril continued with hold parameters
#HLD
-statin continued
#depression
-venlafaxine continued
#DVT prophylaxis
lovenox
#CODE status
-full code
Anticipated Discharge: Within 24 hours
Subjective/Interval History
-
Date of Service: February 24, 2024
denies chest pain
Objective Data
-
Labs:
Laboratory Results
02/24/24
07:11
WBC 5.8
Hgb 11.9 L
Hct 34.9 L
Plt Count 186
Sodium 137
Potassium 3.9
Chloride 105
Carbon Dioxide 24
BUN 20
Creatinine 0.8
Glucose 135 H
Calcium 8.5
Vital Signs:
Vital Signs
Temp Pulse Resp BP Pulse Ox
98.7 F 103 16 117/67 97
02/24/24 11:00 02/24/24 11:00 02/24/24 11:00 02/24/24 11:00 02/24/24 11:00
I&O
02/23/24 02/24/24 02/25/24
06:59 06:59 06:59
Intake Total 240 / 240 660 / 660
Output Total 2099 / 2099 1450 / 1450
Balance -1860 / -1860 -790 / -790
--- NOTE | 2024-02-24 11:56 | PTCARENOTE ---
Pt. POC glucose resulted as 254. Pt made aware of his elevated blood sugar and the associated risks, however he refuses his insulin. He stated 'He has never taken insulin before and does not want to start'. Education provided, Pt asymptomatic and
resting in bed comfortably.
[2024-02-24] MEDS: EFFEXOR XR 150 MG PO (12:13)
--- NOTE | 2024-02-24 14:30 | W.PN.CD ---
Today's Communication / Plan
-
stable for discharge today on 40 PO lasix and increased statin to 40 mg atorva; outpatient TAVR eval; labs in ~1 week; instructed patient to call cardiology office if dry weight deviates more than 5 pounds
Impression / Plan
-
# Decompensated acute on chronic heart failure, now improving status post-diuresis
- euvolemic on exam with good response to PO lasix this AM and stable labs
- awaiting repeat TTE
- cath yesterday not suggestive of new obstructive coronary artery disease, likely progression of severe aortic stenosis driving his presentation
- will refer for outpatient TAVR workup
# NSTEMI, type II
# CAD
- likely secondary to heart failure and severe aortic stenosis with underlying coronary artery disease
- cath 02/22 with non critical CAD and no clear culprit lesion to suggest Type I CT
- continue asa and high intensity statin
# Aortic stenosis
- clinical presentation suggestive of symptomatic severe
- awatigin repeat TTE
- had extensive discussion with patient on the natural history of aortic stenosis and the indications for valve replacement in his case; he is interested in proceeding with TAVR ealuation which will be arranged as an outpatient
# Pleural effusions
- lung exam improved on diuretic
Physical Exam
Vital Signs/Labs
Vital Signs
Temp Pulse Resp BP Pulse Ox
37.1 C 103 16 117/67 97
02/24/24 11:00 02/24/24 11:00 02/24/24 11:00 02/24/24 11:00 02/24/24 11:00
02/23/24 02/24/24 02/25/24
06:59 06:59 06:59
Actual Weight 79.095 kg 77.337 kg
02/24/24 07:11
02/24/24 07:11
APTT Cancelled 02/23/24 20:00
Magnesium 1.3 mg/dl (1.6-2.3) L 02/23/24 06:36
Triglycerides 86 mg/dl (10-149) 02/23/24 06:36
LDL Cholesterol, Calc 23 mg/dl 02/23/24 06:36
VLDL Cholesterol, Calc 17 mg/dl (0-30) 02/23/24 06:36
HDL Cholesterol 48 mg/dl 02/23/24 06:36
02/22/24
19:14
Tre-U-Zvnwwjjlfnp Pept 28995
LAB Results
02/22/24 02/23/24 02/23/24
19:14 00:39 06:37
Troponin I 0.098 H* 0.098 H* 0.087 H*
Physical Exam
Constitutional: No acute distress and Comfortable
Cardiovascular: Rhythm & rate is regular, Pedal edema is absent, JVD pressure is normal and Systolic murmur present (3/6 late peaking)
Respiratory: Respiratory effort normal, Lungs clear to auscul., Wheeze Absent and Crackles Absent
GI: Soft and Distention absent
Neuro/Psych: Alert, Oriented and AO x 3
Other: Cath Site (c/d/i)
Data Reviewed
-
Date of Service: February 24, 2024
Medical Decision Making: Reviewed Test Results
EKG: Tracing Personally Visualized and interpreted
Echo: Tracing Personally Visualized and interpreted
X-Ray/CT/US/MRI/NUC/PET: Image Personally Visualized and interpreted
Labs: Labs Reviewed by me
[2024-02-24 15:03] VITALS: BP 108/69
--- NOTE | 2024-02-24 16:11 | W.DCSUMMARY ---
Discharge Summary
Discharge Data
Date of Admission: 02/22/24
Date of Discharge: 02/24/24
-
Pending Results: No
Hospital Course
78-year-old male past medical history of aortic stenosis, hypertension, diabetes mellitus, hyperlipidemia, depression, CHF came to the hospital with shortness of breath secondary to acute on chronic congestive heart failure exacerbation with
pulmonary edema. Patient also was noted to have moderate to severe aortic stenosis. Given these findings and mildly elevated troponin on admission, patient underwent cardiac catheterization which did not show any significant coronary artery
disease. Patient was initially started on IV Lasix which was later transitioned to oral Lasix prior to discharge. Echocardiogram this admission showed moderate to severe aortic stenosis along with EF which is newly reduced to 30 to 35%. Due to
patient heart failure his pioglitazone was discontinued. Once patient symptoms continue to improve with Lasix, he was then discharged home with oral Lasix and instructions to follow-up closely outpatient with cardiology for possible TAVR evaluation.
Discharge Plan
-
Patient Disposition: Home (Routine Discharge)
Discharge Diagnosis/Procedures: Acute on chronic congestive heart failure now with reduced ejection fraction
Moderate to severe aortic stenosis
Nonischemic myocardial injury troponin elevation status post cardiac catheterization
Condition: Fair
Diet: Low Cholesterol, 2 Gram Sodium and Diabetic, Carb Controlled
Activity: As tolerated
Driving Restrictions: No driving for 24 hours
Blood Work: CBC and CMP next week with primary care provider
Activity Restrictions/Additional Instructions:
Please follow-up with CT surgeon outpatient
Stand Alone Forms: DC Instructions- Cath/EP Lab
Referrals:
Nona Chand CRNP [Specified Professional Personl] - 03/21/24 3:00 pm
Simon Aamya MD [Family Provider] - in less than 1 week
Barrrea Hendrickson MD [Active] - 03/06/24 11:30 am
Additional Discharge Medication Instructions: Hold metformin post cath, resume on Sat evening
Prescriptions:
New
furosemide 40 mg Tablet
40 mg PO DAILY Qty: 30 0RF
atorvastatin 40 mg tablet
40 mg PO HS Qty: 30 0RF
Continued
latanoprost 0.005 % Drops
1 drp BOTH EYES HS
repaglinide 2 mg Tablet
2 mg PO DAILY
venlafaxine 150 mg Capsule,Extended Release 24hr
150 mg PO NOON
cyanocobalamin (vitamin B-12) 1,000 mcg Tablet
1,000 mcg PO QPM
acetaminophen-codeine 300-30 mg tablet
1 tab PO Q8H
aspirin 81 mg Tablet,Delayed Release (Dr/Ec)
81 mg PO HS
acetaminophen [Tylenol Extra Strength] 500 mg Tablet
500 mg PO Q6HPRN PRN (Reason: mild pain)
repaglinide 0.5 mg Tablet
0.5 mg PO TIDPRN PRN (Reason: blood sugar)
ramipril 2.5 mg Capsule
2.5 mg PO DAILY
ergocalciferol (vitamin D2) [Vitamin D2] 1,250 mcg (50,000 unit) Capsule
1,250 mcg PO WE
testosterone 20.25 mg/1.25 gram (1.62 %) Gel In Metered-Dose Pump
2 pump TOPICAL DAILY
Held
metformin 1,000 mg Tablet
1,000 mg PO QPM
Hold Instructions: Resume on 02/25/24.
Discontinued
pioglitazone 45 mg Tablet
45 mg PO DAILY
simvastatin 40 mg Tablet
40 mg PO HS
Discharge Orders:
Discharge Patient (As Directed); Ordered 02/24/24
Ordered By: Devyn Moser
Discharge Date and Time
Discharge Date/Time: 02/24/24 16:51
Print Language: ARMENIAN
== END 2024-02-24 16:51 | disposition home or self-care (01) | DRG 286 ==
LOC: 3 WEST ACU 21:21
PROVIDERS: Physician Assistant Medical; Registered Nurse; Student in an Organized Health Care Education/Training Program; ADMITTING PHYSICIAN Hospitalist; ATTENDING PHYSICIAN Internal Medicine; CONSULT PHYSICIAN Internal Medicine Cardiovascular Disease; EMERGENCY PHYSICIAN Emergency Medicine; FAMILY PHYSICIAN Family Medicine
PROC: 4A023N8 Measurement of Cardiac Sampling and Pressure, Bilateral, Percutaneous Approach (ICD-10-PCS; 2024-02-23)
PROC: B2111ZZ Fluoroscopy of Multiple Coronary Arteries using Low Osmolar Contrast (ICD-10-PCS; 2024-02-23)
DX: I11.0 Hypertensive heart disease with heart failure (principal); I50.33 Acute on chronic diastolic (congestive) heart failure; E11.9 Type 2 diabetes mellitus without complications; I35.0 Nonrheumatic aortic (valve) stenosis; G47.33 Obstructive sleep apnea (adult) (pediatric); E78.5 Hyperlipidemia, unspecified; I25.10 Atherosclerotic heart disease of native coronary artery without angina pectoris; I27.20 Pulmonary hypertension, unspecified; I5A Non-ischemic myocardial injury (non-traumatic); Z79.84 Long term (current) use of oral hypoglycemic drugs; Z79.82 Long term (current) use of aspirin
CPT/HCPCS: 71275; 80048; 80053; 80061; 82248; 82962; 83036; 83735; 83880; 84443; 84484; 85025; 85027; 85730; 93005; 93306; 93460; 96365; 96375; 97161; 97165; 99291; C1894; Q9967

== ENCOUNTER → 2024-03-08 09:33 | Outpatient (REF) | payer OTHER, SELFPAY ==
--- NOTE | 2024-03-05 16:01 | TAVREVAL ---
TAVR Evaluation
STS %
STS: 1.5
Transthoracic Echocardiogram
Transthoracic Echocardiogram Date: 02/24/24
P/M: 68/37
JUAN: 1.0
AI: trace
EF %: 35
MR/MAC: Mild MR
Catherization
Catherization Date: 02/22/24
Findings: HEMODYNAMIC DATA
AO 97/56 (74) mmHg
RA 7 mmHg
RV 39/6 (9) mmHg
PA 38/18 (27) mmHg
PCWP 19 mmHg
SaO2 91.4%
SvO2 68.3%
CO/CI 6.7/3.2 L/min/m2
SVR 805 dsc*-5
PVR 1.2 Wood units
CORONARY ANGIOGRAPHY
Dominance: right
Left Main: Large and normal.
LAD: Large vessel that gives rise to a moderate caliber D1 and wraps around the apex. There is a long segment of ~40% stenosis with heavy calcification extending from before the D1 takeoff down to the mid-vessel. The proximal portion of D1 is also
heavily calcified with moderate stenosis.
Circumflex: large vessel that gives rise to a moderate caliber OM1, small OM2, and large LPL branch. There is severe stenosis in the OM2 which is a small ~1.5mm vessel and otherwise mild disease elsewhere.
RCA: moderate caliber vessel that gives rise to a large RPDA and small RPL system. There is a 40% ostial stenosis with reduction in contrast reflux and mild pressure dampening noted.
Closure Device: TR band
Radiation dose (mGy): 289.97
DAP (cm2.Gy): 31.5367
Fluoroscopy time (minutes): 5
CONCLUSIONS:
1. Mildly elevated biventricular filling pressures, mild pulmonary hypertension, and normal cardiac output and index
2. Non-critical calcific coronary artery disease in a right dominant system
RECOMMENDATIONS:
1. Expectant management after cardiac catheterization via right approach, with limited weight bearing on the right wrist for one week.
2. Aggressive secondary prevention of CAD with ASA and high intensity statin.
3. Inpatient echo
4. Transition to oral diuretic with goal even to -500cc negative, trial 40 PO lasix tomorrow
5. Expedited outpatient workup for TAVR, favoring balloon expandible valve given possible need for future coronary intervention
CAT Scan
CAT Scan Date: 03/08/24
Physician Visits
Date of Visit CT surgeon: Emeka: 03/08/24
Date of Visit Interventionalist:Mynor/Michael/Luis/Beau: 02/22/24 (Jeane)
Primary Instructor [employer] Name: Óscar
PCP Name: Monique
Dentist Name: Dr. Smith
Review of Systems
Review of Systems: Positive for Dyspnea
Plan
Plan:
Procedure Type:�Isolated AVR
PERIOPERATIVE OUTCOME ESTIMATE %
Operative Mortality 1.5%
Morbidity & Mortality 8.02%
Stroke 1.57%
Renal Failure 0.9%
Reoperation 4.05%
Prolonged Ventilation 3.34%
Deep Sternal Wound Infection 0.033%
Long Hospital Stay (>14 days) 4.7%
Short Hospital Stay (<6 days)* 40.9%
03/05/2024: Spoke to patient and his . Reviewed with them the TAVR evaluation process and next steps. Patient will have CT scan on 03/08 at [address] Hendrickson for CT surgery consult at 11:30. Allowed for and answered questions.
== END ==
LOC: RAD 09:33
PROVIDERS: ATTENDING PHYSICIAN Nurse Practitioner Acute Care
DX: I35.0 Nonrheumatic aortic (valve) stenosis (principal)
CPT/HCPCS: 74174; 75572; Q9967

== ENCOUNTER 2024-03-22 05:31 | Inpatient (IN) | payer OTHER, SELFPAY ==
--- NOTE | 2024-03-19 13:42 | CM ---
Met with and Mrs. Coyne in [facility]'s. He states prior to admission he resides with his spouse in a two story home with one step to enter. He states he has a full flight of steps to get to bedroom/full bathroom. He states he has a powder room on
the first floor. He states prior to admission he was independent with ambulation and adls. He states he has a CPAP Machine at home and no other DME. He states he has a prescription plan and uses [facility] He states his spouse will be home to
assist in his care if needed. The discharge plan is to return home with his spouse and a home visit by the Cardiothoracic Transitional Care Nurse when medically stable.
We reviewed pre-op and post-op routines. We reviewed the shower instructions. He has the soap, written instructions and the TAVR Educational Booklet. We also discussed restrictions including lifting and driving restrictions. We discussed a home
visit by the Cardiothoracic Transitional Care Nurse. He is agreeable to a home visit. The plan is to for TAVR on March.
[2024-03-19 13:59] LABS: % Basophils 0.5 % (0-2); % Eosinophils 0.6 % (0-6); % Immature Granulocytes 0.6 % (0-0.5); % Lymphocytes 9.3 % (20.5-51.1); % Monocytes 7.1 % (1.7-9.3); % Neutrophils 81.9 % (42.2-75.2); Absolute Eosinophils 0.1 10^3/uL (0-0.7); Absolute Immature Granulocytes 0.1 10^3/uL (0-0.05); Absolute Lymphocytes 0.8 10^3/uL (1.2-3.4); Absolute Monocytes 0.6 10^3/uL (0.1-0.6); Absolute Neutrophils 7.2 10^3/uL (1.4-6.5); Hematocrit 36.6 % (39.0-52.0); Hemoglobin 12.1 g/dL (13.0-18.0); Mean Corp Hgb Conc. 33.1 g/dL (33.0-37.0); Mean Corpuscular Hgb 31.5 pg (27.0-31.0); Mean Corpuscular Volume 95.3 fL (80.0-94.0); Mean Platelet Volume 10.6 fL (7.4-10.4); Nucleated Red Blood Cells % 0 % (-); Platelet Count 252 10^3/uL (130-400); Red Blood Cell Count 3.84 10^6/uL (4.70-6.10); Red Cell Dist. Width 12.1 % (11.5-14.5); White Blood Cell Count 8.7 10^3/uL (4.8-10.8)
[2024-03-19 14:10] LABS: INR 1.28; PT 15.8 Sec (11.4-14.6)
[2024-03-19 14:11] LABS: APTT 28.2 Sec (23.4-35.0)
[2024-03-19 14:19] LABS: ALT (SGPT) 25 U/L (0-50); AST (SGOT) 26 U/L (17-59); Albumin 4.3 g/dl (3.5-5.0); Alkaline Phosphatase 97 U/L (38-126); Blood Urea Nitrogen 45 mg/dl (9-20); Calcium 8.8 mg/dl (8.4-10.2); Carbon Dioxide 18 mmol/L (22-30); Chloride 98 mmol/L (98-107); Direct Bilirubin 0.3 mg/dl (0.0-0.4); Glucose 242 mg/dl (70-99); Potassium 5.5 mmol/L (3.5-5.1); Sodium 135 mmol/L (135-145); Total Bilirubin 0.5 mg/dl (0.2-1.3); Total Protein 6.6 g/dl (6.3-8.2); eGFR > 60.00
[2024-03-19 14:27] VITALS: BMI 22.0
[2024-03-19 15:16] LABS: Urine Albumin Negative (Neg - Trace); Urine Bilirubin Negative (Negative); Urine Character Clear (Clear); Urine Color Yellow; Urine Glucose Negative (Negative); Urine Ketone Negative (Negative); Urine Leukocyte Negative (Negative); Urine Nitrite Negative (Negative); Urine Occult Blood Negative (Negative); Urine Urobilinogen Negative (Neg - 1+)
[2024-03-22] VITALS (36 sets, daily range): BP systolic 91–111; BP diastolic 46–76; BMI 21.1
--- NOTE | 2024-03-22 06:17 | PTCARENOTE ---
Pt admitted to room 2247 for TAVR. Pt AAOx3. Able to move into bed independently. Pt confirmed NPO status since midnight and 2 CHG showers at home. Weight and VS obtained. Pt clipped and wiped w/ CHG wipes. Admission questions completed. Home
medications confirmed. Pt took aspirin this morning @0445. Left AC 20 gauge PIV placed. ABO drawn and sent. Skin intact. Neuro WNL. Pt oriented to room. Questions encouraged and answered. Wilhelm in to see the pt. Call pritchett within reach.
--- NOTE | 2024-03-22 06:22 | W.CVOR.SURPR ---
CVOR Surgeon Immed Pre Op
-
I have examined this patient prior to performance of the scheduled procedure.
The patient's condition is unchanged from the time of the dictated/written History and
Physical and the patient is able to undergo the scheduled procedure.
TF TAVR
Full Rescue
[2024-03-22 06:47] LABS: Glucose - Point of Care 126 mg/dl (70-99)
[2024-03-22] MEDS: ANCEF 10 IV (07:10)
[2024-03-22 08:17] LABS: ACT-LR - POC 234 Seconds (116-155)
--- NOTE | 2024-03-22 08:41 | W.CVOR.SURPR ---
CVOR Surgeon Immed Pre Op
-
I have examined this patient prior to performance of the scheduled procedure.
The patient's condition is unchanged from the time of the dictated/written History and
Physical and the patient is able to undergo the scheduled procedure.
--- NOTE | 2024-03-22 08:41 | W.IMMPOSTOP ---
Surgical Immed Post Op Note
-
[id number]
STRUCTURAL HEART PROCEDURE NOTE: TAVR
Preoperative Dx:
Low-flow, false moderate gradient SEVERE aortic stenosis
CAD
Reduced LVEF
Postoperative Dx:
Same
Procedures:
1) L CFV access w/ U/S & fluoroscopic guidance, micropuncture technique, 6Fr sheath placement
2) L HURL SHAKER access w/ tactile, U/S, and fluoroscopic guidance, micropuncture technique, limited angiography, 6Fr sheath placement
3) Placement of temporary RV pacing wire under fluoroscopic guidance w/ threshold testing
4) Pigtail catheter placement in RCC w/ limited aortography & confirmation of co-planar valve deployment views
5) R HURL SHAKER access w/ tactile, U/S, and fluoroscopic guidance, micropuncture technique, limited angiography, 6Fr sheath placement, 8Fr dilator
6) Perclose placement x 2 into R HURL SHAKER; 8Fr sheath placement
7) Placement of Stover E-sheath via R HURL SHAKER (systemic heparinization)
8) Wire purchase across stenotic AV (AL-1, soft-tip straight, table-J wire, LVEDP assessment)
9) R TF TAVR w/ placement of 29mm JULIO 3 valve
10) Completion aortography
11) Completion TTE (mean gradient 4mmHg, no AI/PVL)
12) Removal of [id number]; Stvoer E-sheath w/ R HURL SHAKER mgmt w/ perclose sutures x 2; manual pressure
13) Completion R ileofemoral angiography
14) Removal of temporary pacing wire
15) Removal of L HURL SHAKER 6Fr sheath w/ mgmt w/ 6Fr angioseal; manual pressure
16) Removal of L CFV 6Fr sheath w/ mgmt w/ manual pressure
Speech Therapist Early Intervention:
Gabriele Jaramillo M.D.
Cardiac Surgeon:
Barrera Hendrickson M.D.
Anesthesia:
MAC & local to B/L groins
Implants:
Stover Lifesciences, 29mm JULIO 3 valve; SN [id number]
Perclose sutures x 2 to R HURL SHAKER
6Fr angioseal x 1 to L HURL SHAKER
Cath Data:
Start: 0747hrs, Deploy: 0818hrs, End: 0837hrs
FT: 8.8min, mGy: 168.22, DAP: 17.6517, Contrast: 61mL
Post-TTE: mean gradient 4mmHg, No AI/PVL
Complications:
No significant complications
Minor hemodynamic instability immediately prior to TAVR valve deployment
Condition:
Stable/guarded to recovery
--- NOTE | 2024-03-22 08:44 | W.PN.UPDATE ---
Update Note
Progress Note Update
Reviewed Mr. Coyne with the heart team in the preTAVR SDM meeting and confirmed a #29 mm S3 via right transfemoral access. Patient will resume aspirin post TAVR. LVEDP 21mmHg. #29mm S3 (serial #[id number]) successfully deployed via (R) TF access.
Post implant MG 4mmHg.
[2024-03-22] MEDS: LEVOPHED 250 IV (09:21)
[2024-03-22 09:43] LABS: Glucose - Point of Care 188 mg/dl (70-99)
[2024-03-22] MEDS: ANCEF IV (11:05)
[2024-03-22 11:18] LABS: B.E. - POC -6.4 mmol/L; Glucose - POC 177 mg/dl (70-99); HCO3 - POC 20 mmol/L (21-29); Hematocrit - POC 33 % PCV (42-52); Hemodilution- POC Yes; Hemoglobin Calculated - POC 11.3; Ionized Calcium - POC 1.13 mmol/L (1.12-1.27); O2 Saturation %Calculated-POC 99.7 5 (92-96); PCO2 - POC 45 mmHg (35-45); PO2 - POC 219 mmHg (80-100); POC Comment TAVR; Potassium - POC 5.1 mmol/L (3.6-5.0); Sodium - POC 136 mmol/L (135-145); pH - POC 7.27 (7.35-7.45)
--- NOTE | 2024-03-22 13:04 | PTCARENOTE ---
Rec'd patient from cardiac cathlab post TAVR. PT on tele monitor in NSR with LBBB with HR in the 90-100's. Pt with norepinephrine infusing at 4mcg per min per order. Pt VSS (see flowchart) and post procedure vital signs being obtained. Pt aware
of activity restrictions and R+L femoral sites CDI. Bilateral pedal pulses palpable No discharge noted at site. Pt resting with call pritchett in reach and and son at bedside with pt.
[2024-03-22] MEDS: EFFEXOR XR 150 MG PO (13:16)
--- NOTE | 2024-03-22 14:44 | CM ---
Patient underwent TAVR procedure this AM.
Met w/ patient, spouse and son at bedside after procedure.
Pt. feels well.
Reviewed DC plan with patient and family for home w/ CT Transitional Care RN.
There are no additional needs identified at this time.
Will cont. to follow.
[2024-03-22] MEDS: ANCEF 5 IV (14:52)
--- NOTE | 2024-03-22 15:57 | ITS.CL.TAVR ---
Developer Evangelist - TAVR Report
TAVR PRocedure
Procedure Report:
TRANSCATHETER AORTIC VALVE REPLACEMENT REPORT
Date: 03/22/24
Referring physician: Dr. Alf Cantrell
Preop diagnosis: severe aortic stenosis
Postop diagnosis: severe aortic stenosis
Procedure: transcatheter aortic valve replacement (TAVR) using a #29 Sotver JOSEE S3 Ultra
Operators: Gabriele Ching MD, PhD; Barrera Hendrickson MD
Findings: severely calcified and stenotic aortic valve
Anesthesia: conscious sedation was provided by the anesthesia staff
Estimated blood loss: negligible
Complications: none
Condition: stable
Procedure:
The patient was brought to the cardiac computer lab aide after consent and was prepped and draped in standard sterile fashion. Conscious sedation was provided by the anesthesia staff. After a 'Time Out,' the left common femoral artery and vein were accessed
using a modified Seldinger technique with a micropuncture kit under ultrasound guidance. A 6 Syrian sheath was placed in the left femoral vein. Angiography performed through the micropuncture sheath confirmed satisfactory arterial placement in the
left common femoral artery. The micropuncture sheath was replaced with a 6Fr sheath in the left FITTER / WELDER. A temporary pacing wire was advanced through the left femoral vein and into the right ventricle. The pacemaker demonstrated good capture and was set
to back up. A 5Fr pigtail catheter was advanced through the left femoral artery sheath and seated in the right coronary cusp. Angiography confirmed co-the planar angle. Next, the right common femoral artery was accessed using a modified Seldinger
technique with a micropuncture kit under ultrasound guidance. Angiography through the micropuncture kit confirmed satisfactory arterial placement in the right common femoral artery. The right FITTER / WELDER was dilated with an 8FR dilator and preclosed with
two Perc-Close devices. An 8Fr sheath was placed in the RCFA.
An AL-1 catheter was advanced through the 8Fr sheath and used to deposit an Amplatz ExtraStiff wire in the ascending aorta, after which the catheter and the 8 Fr sheath were removed. The 16 Syrian Stover E-sheath was inserted over the wire and into
the descending aorta. Heparin 6000 units was given. The JOSEE S3 was prepared on the back table. Orientation was confirmed by both physicians. The AL-1 catheter was re-advanced through the E-sheath to the level of the ascending aorta. The
Superstiff wire was removed and a soft tip straight wire was advanced through the AL-1. The straight tip wire was used to cross the aortic valve and the catheter was advanced into the left ventricle. The straight wire was exchanged in the ventricle
for a soft J-wire, and the AL1 was exchanged for a pigtail catheter which was used to measure LVEDP. An Amplatz ExtraStiff wire with curved proximal end was advanced through the catheter and into the left ventricle. The wire was seated in the apex
and the Pigtail catheter was removed. ACT was checked and confirmed to be > 250 seconds.
The valve was advanced over the Extrastiff wire and into the descending aorta. The balloon was withdrawn and the valve was mounted on the balloon. At this point the patient began to become hypotensive and thus the following steps were performed
rapidly. The valve was advanced over the aortic arch and into the aortic valve annulus. The pusher device was withdrawn to allow for balloon expansion. Low volume aortography confirmed good position of the valve. The valve was deployed during rapid
ventricular pacing. Echocardiography and aortography confirmed a good result with no aortic valve insufficiency and a 4 mmHg mean gradient. The valve deployment system was removed. The patient's hemodynamics quickly improved. The Stover E sheath
was then removed and hemostasis obtained with the two Perc-Close sutures. Final angiography demonstrated no evidence of ileofemoral dissection/perforation and good runoff below the common femoral artery. The pacemaker and the pigtail catheter were
removed. The left femoral artery sheath was removed using a 6Fr Angioseal. The left femoral venous sheath was removed and manual pressure was applied with excellent hemostasis.
Radiation
Dose (mGy): 168.22
DAP (cm2.Gy): 17.65
Fluoroscopy time (minutes): 8.8
Pre-TAVR LV Pressure: 21 mmHg
TAVR Echo Gradient: 4 mmHg
Conclusions:
1. Successful placement of #29 Josee S3 Ultra aortic valve via right transfemoral approach with no acute complications.
2. Acute on chronic heart failure with elevated filling pressures (LVEDP = 21 mmHg)
Signed: Gabriele Ching MD, PhD
Copy to: Dr. Alf Cantrell MD, PhD
--- NOTE | 2024-03-22 16:20 | PTCARENOTE ---
Norepinephrine discontinued at 1303 in accordance with titration order. Pt systolic blood pressure remained above 90 mmhg (see flowchart). Pt with call pritchett in reach and at bedside.
[2024-03-22] MEDS: VITAMIN B-12 2000 MCG PO (17:53)
[2024-03-22] MEDS: LIPITOR 40 MG PO (22:33)
[2024-03-22] MEDS: XALATAN OPHTHALMIC SOLUTION 1 DROP BOTH EYES (22:33)
[2024-03-22] MEDS: ASPIR LOW (ENTERIC COATED) 81 MG PO (22:33)
--- NOTE | 2024-03-22 22:52 | PTCARENOTE ---
Pt reports feeling great post TAVR procedure. B/l groins remain intact no active bleeding or hematoma present. neuro check wnl, no change.
[2024-03-23 03:36] VITALS: BP 98/58
[2024-03-23 04:22] LABS: Hematocrit 30.2 % (39.0-52.0); Hemoglobin 10.2 g/dL (13.0-18.0); Mean Corp Hgb Conc. 33.8 g/dL (33.0-37.0); Mean Corpuscular Hgb 31.5 pg (27.0-31.0); Mean Corpuscular Volume 93.2 fL (80.0-94.0); Mean Platelet Volume 10.3 fL (7.4-10.4); Platelet Count 163 10^3/uL (130-400); Red Blood Cell Count 3.24 10^6/uL (4.70-6.10); Red Cell Dist. Width 12.2 % (11.5-14.5); White Blood Cell Count 9.9 10^3/uL (4.8-10.8)
[2024-03-23 04:32] LABS: Blood Urea Nitrogen 29 mg/dl (9-20); Calcium 8.8 mg/dl (8.4-10.2); Carbon Dioxide 21 mmol/L (22-30); Chloride 104 mmol/L (98-107); Estimated Creatinine Clearance 77 ml/min; Glucose 154 mg/dl (70-99); Potassium 4.5 mmol/L (3.5-5.1); Sodium 138 mmol/L (135-145); eGFR > 60.00
[2024-03-23 05:20] LABS: Hepatitis C Antibody Negative (Negative)
--- NOTE | 2024-03-23 06:09 | W.PN.CT ---
Addendum entered and electronically signed by Barrera Hendrickson MD 03/23/24 08:37:
I saw and examined the patient.
The PA's note was reviewed and I agree with the note.
Comment:
Postop day 1 status post right transfemoral TAVR with placement of a 29 mm S3 valve.
Transient left bundle branch post TAVR has resolved, patient with no bradycardia or pauses over evening
States that he feels very well today.
Check echocardiogram
Aspirin only anticoagulation
Check repeat hemoglobin prior to discharge
Resume home medications
Discharge planning for hopefully later today
Original Note:
Today's Communication / Plan
-
-pod#1
-no issues overnight
-nsr 90s. No mandi or pause. 8 beat wct (nsvt vs svt?)- will review with Cardiology
-new LBBB post TAVR- resolved - not on AV node blocking meds preop
-Echo today
-current meds (ASA, Lipitor, Effexor)
-consider Rhythm monitor
-encourage IS, ambulate
Assessment / Plan
-
- Low-flow, false moderate gradient SEVERE aortic stenosis- s/p R TF TAVR w/ placement of 29mm JULIO 3 valve on 03/22/24, pod #1
- Post-TTE: mean gradient 4mmHg, No AI/PVL
- Chronic systolic CHF
- Reduced LVEF 35-40%
- HTN
- HLD
- DM II
- ROSALBA, uses CPAP
- Abdominal hernia
- Prostate CA, s/p surgery and XRT
- Acute postop LBBB- resolved
Discussed patient care with: Nursing and Care Team
Subjective
Procedure
-s/p R TF TAVR w/ placement of 29mm JULIO 3 valve on 03/22/24
-
Date of Service: March 22, 2024
Objective Data
-
Lab Results
03/19/24 12:26
03/19/24 12:26
PT 15.8 Sec (11.4-14.6) H 03/19/24 12:
INR 1.28 03/19/24 12:
APTT 28.2 Sec (23.4-35.0) 03/19/24 12:
Vital Signs
Vital Signs
Temp Pulse Resp BP Pulse Ox
98.3 F 95 20 109/53 95
03/22/24 22:53 03/22/24 22:05 03/22/24 22:53 03/22/24 22:05 03/22/24 22:53
CT Intake/Output/Weight
03/22/24 03/22/24 03/23/24
06:59 18:59 06:59
Intake Total 2400 / 2400
Output Total 300 / 300
Balance 2100 / 2100
SaO2: 95
Physical Exam
-
General: Awake and AOx3
Cardiovascular: Regular rate & rhythm, No Murmurs and No Rub
Respiratory: Decreased Breath Sounds
Incision: Other (groins are cdi, soft, nontender, no hematoma b/l)
Extremities: No Edema (2+DPs b/l)
Abdomen: soft, nontender, nondistended, soft abdominal hernia noted, + bowel sounds
Data Reviewed
-
Lab Results: Results Reviewed
Medications: Active Meds Reviewed
Chest X-Ray: Report Reviewed and Image Reviewed
ECG: Report Reviewed and Image Reviewed
[2024-03-23 07:15] VITALS: BP 110/62
--- NOTE | 2024-03-23 07:27 | W.PN.ANS.POP ---
Anesthesia Post Operative
- Anesthesia Post Op Note
Vital Signs Stable-See Nursing Note: Yes
Airway Patent: Yes
Adequate Pain Control: Yes
Change in Mental Status: No
Current Postoperative Nausea & Vomiting: No
Anesthesia Complications: No
General Anesthetic Recall: No
Unplanned Admission: No
Post Op Hydration Adequate: Yes
--- NOTE | 2024-03-23 07:53 | W.PN.CD ---
Today's Communication / Plan
-
doing well post-TAVR; check TTE; recheck Hb; ambulate; discharge PM if doing well; will need addition of beta ni and titration of GDMT in the outpatient setting (forgo starting today given relative hypotension and transient LBBB post-TAVR)
Impression / Plan
-
78 year old man with heart failure with newly reduced ejection fraction, coronary artery disease, and low flow low gradient severe aortic stenosis now POD#1 s/p TAVR valve with Josee #29.
# Severe s/p TAVR ([id number], 03/22/24)
- transient hypotension, seeming vasoplegic post-procedure
- transient LBBB, now resolved
- short run of SVT w/ abberancy vs. NSVT overnight
- Hb drop overnight (likely secondary to volume given post-procedure in setting of hypotension/vasoplegia)
--> follow up TTE
--> repeat Hb for stability
--> if doing well, plan for discharge this afternoon
# Chronic systolic heart failure with newly reduced EF on TTE 02/24/24
- likely secondary to progressive , recent cath without obstructive disease
- euvolemic on exam today
- will monitor EF for recovery post-TAVR in outpatient setting
- plan to initiate beta ni in outpatient setting (will not do so here given relative hypotension and transient LBBB post-TAVR)
# CAD, recent admission for Type II NSTEMI
- likely secondary to heart failure and severe aortic stenosis with underlying coronary artery disease
- cath 02/22 with non critical CAD and no clear culprit lesion to suggest Type I WA
- continue asa and high intensity statin
Subjective: feels well
Physical Exam
Vital Signs/Labs
Vital Signs
Temp Pulse Resp BP Pulse Ox
37.3 C 97 20 98/58 97
03/23/24 07:13 03/23/24 03:36 03/23/24 07:13 03/23/24 03:36 03/23/24 07:13
03/22/24 03/23/24 03/24/24
06:59 06:59 06:59
Actual Weight 72.4 kg
03/23/24 03:46
03/23/24 03:46
PT 15.8 Sec (11.4-14.6) H 03/19/24 12:26
INR 1.28 03/19/24 12:26
APTT 28.2 Sec (23.4-35.0) 03/19/24 12:26
Physical Exam
Constitutional: No acute distress and Comfortable
Cardiovascular: Rhythm & rate is regular, Pedal edema is absent, JVD pressure is normal, Systolic murmur absent and Pedal edema present
Respiratory: Respiratory effort normal, Lungs clear to auscul., Wheeze Absent, Crackles Absent and Rhonchi Absent
GI: Soft
Neuro/Psych: Alert, Oriented and AO x 3
Other: Cath Site (groin site soft, minimal bruising, no mass)
Data Reviewed
-
Date of Service: March 23, 2024
Medical Decision Making: Reviewed Test Results and Test Interpretation
EKG: Report Reviewed by me
Echo: Report Reviewed by me
X-Ray/CT/US/MRI/NUC/PET: Report Reviewed by me
Labs: Labs Reviewed by me
[2024-03-23 08:09] LABS: ACT-LR - POC > 397 Seconds (116-155)
--- NOTE | 2024-03-23 09:06 | W.DCSUMMARY ---
Discharge Summary
Discharge Data
Date of Admission: 03/22/24
Date of Discharge: 03/23/24
-
Pending Results: No
Hospital Course
Primary care physician: Simon Brooks
Outpatient desktop specialist: Filiberto Cantrell
Inpatient consultants: [facility] cardiology
Procedures:
1. TAVR
Primary Diagnosis:
1. Low-flow, false moderate gradient SEVERE aortic stenosis
Secondary Diagnoses:
1. Coronary artery disease with history of type II NSTEMI
2. Chronic systolic heart failure (HFrEF 35-40%)
3. Hypertension
4. Hyperlipidemia
5. Type 2 diabetes (A1c 6.1)
6. Obstructive sleep apnea with CPAP use
7. History of prostate cancer status post radiation and prostatectomy
8. Gastroparesis
9. Low testosterone level
10. 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
11. Transient postoperative new left bundle branch block�resolved
12. Glaucoma
13. Postop dilutional anemia
HPI: 78-year-old male was electively admitted on 03/22/2024 for TAVR due to severe aortic stenosis
Hospital course: Patient underwent a right transfemoral TAVR number 29 mm Stover CPN [address] Barrera Hendrickson. Patient required Levophed initially for systolic blood pressure in the 90s. Levophed was weaned off throughout the night.
Initial postop EKG reported new left bundle branch block which resolved on postop day #1. Bilateral groin incision sites were intact without hematoma or ecchymosis. Predischarge TTE reported unchanged EF of 35 to 40%. AV gradients of 12/7 with no
aortic insufficiency. Patient structured to resume Metformin on 03/25/2024. Patient is stable for discharge to home.
Home medication changes:
Resume Metformin on 03/25/24
Discharge Plan
-
Patient Disposition: Home (Routine Discharge)
Discharge Diagnosis/Procedures: TF-TAVR
Condition: Good
Diet: Low Cholesterol and 2 Gram Sodium
Activity: As tolerated
Driving Restrictions: No driving for 1 week
Bathing Restrictions: OK to Shower
Others Tests: 30 Day follow up Echocardiogram 04/23/2024 at 2:00pm at [facility]
Other Services: Cardiac Rehab
Wound Care: Please do not apply powders, lotions or creams to groin areas. Monitor for increased pain, swelling, redness or drainage. Notify your doctor if any occur.
Specialty Instructions: Weigh Daily- Call MD for wt gain/loss 3 lbs overnight/5 lbs in 1 week
Referrals:
CT Transitional Care Nurse [Outside] (The Cardiothoracic Transitional Care Nurse will call you to set up a visit in 1-2 days.)
[facility]. Cardiac Rehab [Outside] - 04/26/24 10:00 am
(Cardiac Rehab Orientation appointment is on 04/26/2024@ 10:00am.
The Cardiac Rehab gym is located on the first floor of the [facility].)
Radha King NP [Specified Professional Personl] - 04/26/24 2:00 pm
Simon Amaya MD [Family Provider] -
Prescriptions:
Continued
latanoprost 0.005 % Drops
1 drp BOTH EYES HS
repaglinide 2 mg Tablet
2 mg PO DAILY
venlafaxine 150 mg Capsule,Extended Release 24hr
150 mg PO NOON
cyanocobalamin (vitamin B-12) 1,000 mcg Tablet
2,000 mcg PO 1800
acetaminophen-codeine 300-30 mg tablet
1 tab PO TID
aspirin 81 mg Tablet,Delayed Release (Dr/Ec)
81 mg PO HS
repaglinide 0.5 mg Tablet
0.5 mg PO TIDPRN PRN (Reason: blood sugar)
Patient Comments:
Per pt it has been a long time since he has taken the 0.5 mg dose.
ramipril 2.5 mg Capsule
2.5 mg PO DAILY
ergocalciferol (vitamin D2) [Vitamin D2] 1,250 mcg (50,000 unit) Capsule
1,250 mcg PO WE
testosterone 20.25 mg/1.25 gram (1.62 %) Gel In Metered-Dose Pump
2 pump TOPICAL DAILY
atorvastatin 40 mg tablet
40 mg PO HS Qty: 30 0RF
metformin 1,000 mg Tablet
1,000 mg PO 1800 Qty: 0 0RF
Rx Instructions:
resume on 03/25
furosemide 40 mg Tablet
40 mg PO DAILY Qty: 30 0RF
Discharge Orders:
Discharge Patient (As Directed); Ordered 03/23/24
Ordered By: Elva Bull
Care Plan Goals
Care Plan Goals:
Problem: Readiness for enhanced knowledge related to diagnosis and treatment plan
Goal: Understand your diagnosis and treatment plan needs, including medications if applicable.
Instructions: Know your diagnosis, underlying causes and treatment plan options, including medications if applicable. Consult with your health care team to learn about your diagnosis and treatment plan, including medications if applicable.
Discharge Date and Time
Print Language: MACANESE
[2024-03-23 09:32] LABS: Hematocrit 31.3 % (39.0-52.0); Hemoglobin 10.4 g/dL (13.0-18.0); Mean Corp Hgb Conc. 33.2 g/dL (33.0-37.0); Mean Corpuscular Hgb 32.4 pg (27.0-31.0); Mean Corpuscular Volume 97.5 fL (80.0-94.0); Mean Platelet Volume 10.5 fL (7.4-10.4); Platelet Count 147 10^3/uL (130-400); Red Blood Cell Count 3.21 10^6/uL (4.70-6.10); Red Cell Dist. Width 12.2 % (11.5-14.5); White Blood Cell Count 10.2 10^3/uL (4.8-10.8)
[2024-03-23 10:10] LABS: Blood Urea Nitrogen 25 mg/dl (9-20); Calcium 8.7 mg/dl (8.4-10.2); Carbon Dioxide 22 mmol/L (22-30); Chloride 103 mmol/L (98-107); Estimated Creatinine Clearance 77 ml/min; Glucose 237 mg/dl (70-99); Potassium 4.6 mmol/L (3.5-5.1); Sodium 138 mmol/L (135-145); eGFR > 60.00
[2024-03-23 10:36] VITALS: BP 107/68
[2024-03-23 10:50] VITALS: BP 141/72
[2024-03-23 10:57] VITALS: BP 107/68; BP 141/72; PULSE 92; O2SAT 96; O2SAT 98
[2024-03-23] MEDS: EFFEXOR XR 150 MG PO (11:20)
[2024-03-23 11:28] VITALS: BP 115/68
--- NOTE | 2024-03-23 13:10 | PTCARENOTE ---
Pt received this am with no c/o. OOB in the room and to the bathroom, gait steady. Bilateral groin site dressings dry and intact. Denies any pain or discomfort. Remains in SR, rate in the 70's. Pt discharged to home with his and son. Discharge
instructions given and reviewed with pt and his with good understanding.
== END 2024-03-23 12:27 | disposition home or self-care (01) | DRG 266 ==
LOC: IVU 05:31
PROVIDERS: Nurse Practitioner; Student in an Organized Health Care Education/Training Program; ADMITTING PHYSICIAN Thoracic Surgery (Cardiothoracic Vascular Surgery); ATTENDING PHYSICIAN Thoracic Surgery (Cardiothoracic Vascular Surgery); CONSULT PHYSICIAN Internal Medicine Cardiovascular Disease; FAMILY PHYSICIAN Family Medicine; OTHER PHYSICIAN Internal Medicine
PROC: 02RF38Z Replacement of Aortic Valve with Zooplastic Tissue, Percutaneous Approach (ICD-10-PCS; 2024-03-22)
DX: I35.0 Nonrheumatic aortic (valve) stenosis (principal); I50.23 Acute on chronic systolic (congestive) heart failure; I25.10 Atherosclerotic heart disease of native coronary artery without angina pectoris; I11.0 Hypertensive heart disease with heart failure; E78.5 Hyperlipidemia, unspecified; G47.33 Obstructive sleep apnea (adult) (pediatric); E11.43 Type 2 diabetes mellitus with diabetic autonomic (poly)neuropathy; K31.84 Gastroparesis; I44.7 Left bundle-branch block, unspecified; I25.2 Old myocardial infarction; Z79.82 Long term (current) use of aspirin; Z79.84 Long term (current) use of oral hypoglycemic drugs; Z79.899 Other long term (current) drug therapy; Z85.46 Personal history of malignant neoplasm of prostate; Z92.3 Personal history of irradiation
CPT/HCPCS: 93308; 33361; 36415; 71045; 71046; 80048; 80053; 81003; 82248; 82962; 85025; 85027; 85347; 85610; 85730; 86803; 86850; 86900; 86901; 87070; 93005; 93306; 93321; 93325; C1760; C1894; Q9967

== ENCOUNTER → 2024-04-20 11:13 | Outpatient (REF) | payer OTHER, SELFPAY | LOC: RCS 11:13 | PROVIDERS: ATTENDING PHYSICIAN Internal Medicine; FAMILY PHYSICIAN Family Medicine | DX: Z95.2 Presence of prosthetic heart valve (principal); I10 Essential (primary) hypertension; E11.65 Type 2 diabetes mellitus with hyperglycemia; R00.0 Tachycardia, unspecified; I35.0 Nonrheumatic aortic (valve) stenosis | CPT/HCPCS: 93306 ==

== ENCOUNTER 2024-05-09 16:34 | Outpatient (RCR) | payer OTHER, SELFPAY ==
[2024-04-26 12:18] LABS: Glucose - Point of Care 246 mg/dl (70-99)
[2024-05-07 12:03] LABS: Glucose - Point of Care 279 mg/dl (70-99)
[2024-05-07 13:33] LABS: Glucose - Point of Care 265 mg/dl (70-99)
[2024-05-09 16:07] LABS: Glucose - Point of Care 250 mg/dl (70-99)
[2024-05-09 16:56] LABS: Glucose - Point of Care 228 mg/dl (70-99)
== END 2024-05-09 23:59 | disposition home or self-care (01) ==
LOC: CRHB 16:34
PROVIDERS: ATTENDING PHYSICIAN Internal Medicine
DX: I25.10 Atherosclerotic heart disease of native coronary artery without angina pectoris (principal); Z95.2 Presence of prosthetic heart valve
CPT/HCPCS: 82962; G0422; G0423

== ENCOUNTER → 2024-05-24 13:45 | Outpatient (REF) | payer OTHER, SELFPAY ==
[2024-05-24 15:32] LABS: % Basophils 0.6 % (0-2); % Eosinophils 0.8 % (0-6); % Immature Granulocytes 0.6 % (0-0.5); % Lymphocytes 12.6 % (20.5-51.1); % Monocytes 8.5 % (1.7-9.3); % Neutrophils 76.9 % (42.2-75.2); Absolute Basophils 0.1 10^3/uL (0-0.2); Absolute Eosinophils 0.1 10^3/uL (0-0.7); Absolute Immature Granulocytes 0.1 10^3/uL (0-0.05); Absolute Lymphocytes 1.3 10^3/uL (1.2-3.4); Absolute Monocytes 0.8 10^3/uL (0.1-0.6); Absolute Neutrophils 7.6 10^3/uL (1.4-6.5); Hematocrit 39.5 % (39.0-52.0); Hemoglobin 13.3 g/dL (13.0-18.0); Mean Corp Hgb Conc. 33.7 g/dL (33.0-37.0); Mean Corpuscular Hgb 31.7 pg (27.0-31.0); Mean Corpuscular Volume 94.3 fL (80.0-94.0); Mean Platelet Volume 10.1 fL (7.4-10.4); Nucleated Red Blood Cells % 0 % (-); Platelet Count 243 10^3/uL (130-400); Red Blood Cell Count 4.19 10^6/uL (4.70-6.10); Red Cell Dist. Width 12.3 % (11.5-14.5); White Blood Cell Count 9.9 10^3/uL (4.8-10.8)
[2024-05-24 15:52] LABS: Albumin 4.2 g/dl (3.5-5.0); Blood Urea Nitrogen 64 mg/dl (9-20); Calcium 8.8 mg/dl (8.4-10.2); Carbon Dioxide 17 mmol/L (22-30); Chloride 102 mmol/L (98-107); Glucose 175 mg/dl (70-99); Phosphorus 5.5 mg/dl (2.5-4.5); Potassium 4.6 mmol/L (3.5-5.1); Sodium 138 mmol/L (135-145); eGFR > 60.00
== END ==
LOC: RCS 13:45
PROVIDERS: ATTENDING PHYSICIAN Internal Medicine; FAMILY PHYSICIAN Family Medicine
DX: R06.02 Shortness of breath (principal); R53.83 Other fatigue
CPT/HCPCS: 36415; 71046; 80069; 85025; 93306; Q9950

== ENCOUNTER 2024-06-08 14:58 | Outpatient (RCR) | payer OTHER, SELFPAY ==
[2024-05-11 14:45] LABS: Glucose - Point of Care 257 mg/dl (70-99)
[2024-05-11 15:29] LABS: Glucose - Point of Care 243 mg/dl (70-99)
[2024-05-16 14:59] LABS: Glucose - Point of Care 221 mg/dl (70-99)
[2024-05-16 15:38] LABS: Glucose - Point of Care 215 mg/dl (70-99)
[2024-05-18 14:39] LABS: Glucose - Point of Care 180 mg/dl (70-99)
[2024-05-18 15:19] LABS: Glucose - Point of Care 154 mg/dl (70-99)
[2024-05-21 14:46] LABS: Glucose - Point of Care 134 mg/dl (70-99)
[2024-05-21 15:27] LABS: Glucose - Point of Care 129 mg/dl (70-99)
[2024-06-01 14:47] LABS: Glucose - Point of Care 263 mg/dl (70-99)
[2024-06-01 14:58] LABS: Glucose - Point of Care 221 mg/dl (70-99)
[2024-06-01 15:32] LABS: Glucose - Point of Care 208 mg/dl (70-99)
[2024-06-06 14:49] LABS: Glucose - Point of Care 234 mg/dl (70-99)
[2024-06-06 15:39] LABS: Glucose - Point of Care 286 mg/dl (70-99)
[2024-06-08 14:36] LABS: Glucose - Point of Care 197 mg/dl (70-99)
[2024-06-08 15:29] LABS: Glucose - Point of Care 172 mg/dl (70-99)
[2024-06-11 14:53] LABS: Glucose - Point of Care 151 mg/dl (70-99)
== END 2024-06-08 23:59 | disposition home or self-care (01) ==
LOC: CRHB 14:58
PROVIDERS: ATTENDING PHYSICIAN Internal Medicine
DX: Z95.2 Presence of prosthetic heart valve (principal)
CPT/HCPCS: 82962; G0422; G0423

== ENCOUNTER 2024-07-09 15:43 | Outpatient (RCR) | payer OTHER, SELFPAY ==
[2024-06-18 14:50] LABS: Glucose - Point of Care 132 mg/dl (70-99)
[2024-06-20 15:00] LABS: Glucose - Point of Care 163 mg/dl (70-99)
[2024-06-20 15:51] LABS: Glucose - Point of Care 139 mg/dl (70-99)
[2024-07-09 14:59] LABS: Glucose - Point of Care 164 mg/dl (70-99)
[2024-07-09 15:52] LABS: Glucose - Point of Care 152 mg/dl (70-99)
== END 2024-07-09 23:59 | disposition home or self-care (01) ==
LOC: CRHB 15:43
PROVIDERS: ATTENDING PHYSICIAN Internal Medicine
DX: I25.10 Atherosclerotic heart disease of native coronary artery without angina pectoris (principal); Z95.2 Presence of prosthetic heart valve
CPT/HCPCS: 82962; G0422; G0423

== ENCOUNTER 2024-08-10 14:58 | Outpatient (RCR) | payer OTHER, SELFPAY ==
[2024-07-18 14:40] LABS: Glucose - Point of Care 208 mg/dl (70-99)
[2024-07-18 15:28] LABS: Glucose - Point of Care 151 mg/dl (70-99)
[2024-07-20 14:35] LABS: Glucose - Point of Care 105 mg/dl (70-99)
[2024-07-20 15:25] LABS: Glucose - Point of Care 83 mg/dl (70-99)
[2024-07-23 15:00] LABS: Glucose - Point of Care 151 mg/dl (70-99)
[2024-07-23 15:52] LABS: Glucose - Point of Care 115 mg/dl (70-99)
[2024-07-27 14:38] LABS: Glucose - Point of Care 174 mg/dl (70-99)
[2024-07-27 15:35] LABS: Glucose - Point of Care 133 mg/dl (70-99)
[2024-08-10 14:39] LABS: Glucose - Point of Care 169 mg/dl (70-99)
== END 2024-08-10 23:59 | disposition home or self-care (01) ==
LOC: CRHB 14:58
PROVIDERS: ATTENDING PHYSICIAN Internal Medicine
DX: Z95.2 Presence of prosthetic heart valve (principal); I25.10 Atherosclerotic heart disease of native coronary artery without angina pectoris
CPT/HCPCS: 82962; G0422; G0423

== ENCOUNTER 2024-08-17 16:51 | Outpatient (RCR) | payer OTHER, SELFPAY | END 2024-08-17 23:59 | disposition home or self-care (01) | LOC: CRHB 16:51 | PROVIDERS: ATTENDING PHYSICIAN Internal Medicine | DX: Z95.2 Presence of prosthetic heart valve (principal); I25.10 Atherosclerotic heart disease of native coronary artery without angina pectoris | CPT/HCPCS: G0422; G0423 ==

== ENCOUNTER → 2024-09-19 12:46 | Outpatient (REF) | payer OTHER, SELFPAY | LOC: RCS 12:46 | PROVIDERS: ATTENDING PHYSICIAN Nurse Practitioner; FAMILY PHYSICIAN Family Medicine | DX: Z95.2 Presence of prosthetic heart valve (principal) | CPT/HCPCS: 93306; Q9950 ==

== ENCOUNTER 2024-12-31 06:30 | Day surgery (SDC) | payer OTHER, SELFPAY ==
[2024-12-21 11:03] LABS: Hematocrit 38.7 % (39.0-52.0); Hemoglobin 12.5 g/dL (13.0-18.0); Mean Corp Hgb Conc. 32.3 g/dL (33.0-37.0); Mean Corpuscular Hgb 31.6 pg (27.0-31.0); Mean Platelet Volume 10.9 fL (7.4-10.4); Platelet Count 206 10^3/uL (130-400); Red Blood Cell Count 3.95 10^6/uL (4.70-6.10); White Blood Cell Count 9.9 10^3/uL (4.8-10.8)
[2024-12-21 11:52] LABS: ALT (SGPT) 76 U/L (0-50); AST (SGOT) 38 U/L (17-59); Albumin 3.9 g/dl (3.5-5.0); Alkaline Phosphatase 99 U/L (38-126); Blood Urea Nitrogen 38 mg/dl (9-20); Calcium 8.5 mg/dl (8.4-10.2); Carbon Dioxide 23 mmol/L (22-30); Chloride 110 mmol/L (98-107); Glucose 82 mg/dl (70-99); Sodium 143 mmol/L (135-145); Total Bilirubin 0.4 mg/dl (0.2-1.3); Total Protein 6.4 g/dl (6.3-8.2); eGFR > 60.00
[2024-12-31] VITALS (14 sets, daily range): BP systolic 30–144; BP diastolic 47–84; BMI 18.8
--- NOTE | 2024-12-31 08:49 | HP.FOC2 ---
Focused History & Physical
Chief Complaint
HPI:
Chief Complaint: Incisional hernia
HPI / Indication for Planned Procedure: Patient is an 79-year-old male with a known large incisional hernia that he has been following expectantly for the past few years. It has slowly increased in size and the has occasional discomfort in the
area. Chronic constipation well-controlled with MiraLAX. Underwent TAVR in February 2024 from which she has recovered well. Past abdominal surgical history notable for having undergone prostatectomy as well as laparotomy with small bowel resection
for perforated small bowel diverticulum in 2004.
Relevant Past Medical History: Other (Hyperlipidemia, [id number] diabetes mellitus, hypertension, depression, ROSALBA on CPAP, history of prostate cancer, spinal stenosis, history of aortic stenosis, gastroparesis, heart failure with
preserved ejection fraction, chronic constipation, arthritis)
Relevant Social History: Negative
Relevant Family History: Negative
Relevant Past Surgical History: Positive for (Open prostatectomy, ex lap small bowel resection, TAVR, cataracts, wisdom teeth)
Review of Systems
Review of Pertinent Systems: All Systems Negative
Medication
See Medication form for detailed medications: Yes
Medication List (including Herbals & OTC):
acetaminophen 300 mg-codeine 30 mg tablet 1 tab PO TIDPRN PRN Pain 02/22/24
aspirin 81 mg tablet,delayed release 81 mg PO HS Blood Clot Prevention/Tx 02/22/24
cyanocobalamin (vitamin B-12) 1,000 mcg tablet 2,000 mcg PO DAILY@1999 Supplement 02/22/24
latanoprost 0.005 % eye drops 1 drp BOTH EYES HS Eye Condition 02/22/24
repaglinide 0.5 mg tablet 1 mg PO DAILY@199902/22/24
repaglinide 2 mg tablet 4 mg PO BID Diabetes 02/22/24
testosterone 2 pump topical DAILY Hormonal Agent 02/22/24
venlafaxine 150 mg capsule,extended release 24 hr 150 mg PO NOON Depression 02/22/24
atorvastatin 10 mg tablet 10 mg PO HS 12/24/24
ergocalciferol (vitamin D2) 1,250 mcg (50,000 unit) capsule (Vitamin D2) 1,250 mcg PO WE 12/24/24
furosemide 40 mg tablet 20 mg PO DAILY Heart Failure 12/24/24
metformin 1,000 mg tablet 1,000 mg PO BID Diabetes 12/24/24
metoprolol succinate 25 mg tablet,extended release 24 hr 25 mg PO HS 12/24/24
Medications Reviewed: Yes
Allergies and Reactions
Patient has Allergies: Yes
Noted Allergies and Reactions:
Allergy/AdvReac Type Severity Reaction Status Date / Time
cat dander Allergy Itchy eyes Verified 12/31/24 08:44
Pertinent Physical Exam
All Other Systems: Negative
Head/Neck: Normal
Lungs: Normal
Heart: Normal
Abdomen: Other (Large, reducible incisional hernia with estimated vertical length of 10 cm and 5 to 6 cm width)
Extremities: Normal
Neurological: Normal
Diagnosis / Assessment
79-year-old male presenting for scheduled operative correction symptomatic incisional hernia, 10 cm maximal length estimated
Plan / Procedure
Open retrorectus mesh repair incisional hernia
Anesthesia/Sedation to be done by Anesthesia Provider: Yes
--- NOTE | 2024-12-31 08:53 | W.SUR.PREOP ---
Pre-Operative Surgical Note
-
I have examined this patient prior to the performance of the scheduled procedure.
The patient's condition is unchanged from the time of the current History and
Physical and the patient is able to undergo the scheduled procedure.
[2024-12-31 09:07] LABS: Glucose - Point of Care 65 mg/dl (70-99)
[2024-12-31] MEDS: NORMOSOL-R/PLASMALYTE-A 1000 IV (09:10)
[2024-12-31] MEDS: DEXTROSE 50% SYRINGE 12.5 GRAMS IV (09:22)
[2024-12-31 10:20] LABS: Glucose - Point of Care 92 mg/dl (70-99)
--- NOTE | 2024-12-31 12:27 | W.IMMPOSTOP ---
Addendum entered and electronically signed by Jani Rowland MD 12/31/24 15:40:
#[id number]
Original Note:
Surgical Immed Post Op Note
-
Primary Surgeon: Jani Rowland MD
Assisting Surgeon: Petra SARMIENTO
Pre-op Diagnosis: Incisional hernia
Post-op Diagnosis: Incisional hernia; 10 cm maximal length
Procedure Performed: Open retrorectus mesh repair incisional hernia; Bard soft 20 cm x 14 cm
Anesthesia Type: GETA +0.25% Marcaine with epi
Specimen / Cultures: None
Estimated Blood Loss: 32 mL
Complications: None immediate
Operative Findings: Large midline incisional hernia particularly subcutaneous hernia sac component. Outside of largest primary fascial defect there were a couple immediately adjacent smaller fascial defects essentially spanning the length of the
previous laparotomy scar. Total length of hernias spanned 10 cm vertically and 4 cm in width. No bowel adhesions within hernia sac nor to anterior abdominal wall. Posterior sheath/peritoneal closure with 2-0 PDS STRATAFIX spiral suture x 2. Bard
soft mesh 20 cm x 14 cm, retrorectus location. Closure linea alba/fascial defect with #1 PDS STRATAFIX symmetric suture x 2.
Drains: 19 [place], retrorectus location
[2024-12-31 12:45] LABS: Glucose - Point of Care 101 mg/dl (70-99)
[2024-12-31] MEDS: NSS 1000 IV ×2 (14:33→23:21)
[2024-12-31 16:08] LABS: Glucose - Point of Care 130 mg/dl (70-99)
[2024-12-31] MEDS: NOVOLOG FLEXPEN-LOW RESISTANCE SC (16:21)
[2024-12-31 21:05] LABS: Glucose - Point of Care 285 mg/dl (70-99)
[2024-12-31] MEDS: ASPIR LOW (ENTERIC COATED) 81 MG PO (21:13)
[2024-12-31] MEDS: TOPROL XL 25 MG PO (21:13)
[2024-12-31] MEDS: XALATAN OPHTHALMIC SOLUTION 1 DROP BOTH EYES (21:13)
--- NOTE | 2024-12-31 21:34 | PTCARENOTE ---
Pt's hs blood glucose 285. No coverage ordered but refusing insulin administration. ALLISON Boone notified and aware.
[2024-12-31] MEDS: TYLENOL 650 MG PO (23:20)
[2025-01-01 03:00] VITALS: BP 114/61
[2025-01-01] MEDS: TYLENOL 650 MG PO ×2 (05:58→21:41)
[2025-01-01 06:00] VITALS: BMI 18.8
--- NOTE | 2025-01-01 06:00 | PTCARENOTE ---
Dalton removed at 0600 per order. Pt tolerated well. DTV @ 1200. Urinal within reach.
[2025-01-01 06:31] LABS: Hematocrit 36.3 % (39.0-52.0); Hemoglobin 11.9 g/dL (13.0-18.0); Mean Corp Hgb Conc. 32.8 g/dL (33.0-37.0); Mean Corpuscular Hgb 31.1 pg (27.0-31.0); Mean Corpuscular Volume 94.8 fL (80.0-94.0); Mean Platelet Volume 10.2 fL (7.4-10.4); Platelet Count 247 10^3/uL (130-400); Red Blood Cell Count 3.83 10^6/uL (4.70-6.10); Red Cell Dist. Width 13.2 % (11.5-14.5)
--- NOTE | 2025-01-01 06:36 | W.PN.GS2 ---
Today's Communication / Plan
-
`
Assessment / Plan
-
Assessment: 79 y/o male POD#1 s/p open retrorectus mesh repair incisional hernia (10cm)
AFVSS
doing well post op
DADA expected character and quantity of output
Plan: multimodal pain control options
OOBTC/ambulate today
dumont out and dtv
maintain DADA
resume home DM meds with diet advancement continue Accu checks/SSI
metoprolol/lasix home cards regiment
heparin for VTEp
consult case management for home VN
dispo: probable dc in PM vs tomorrow if pain controlled, ambulating well, melissa diet advancement
Subjective Data
-
Date of Service: January 01, 2025
pt seen and examined
pain controlled with PO tylenol
no nausea, tolerated clears
appetite for breakfast
dumont removed this AM
Objective Data
-
Intake and Output
12/30/24 12/31/24 01/01/25
06:59 06:59 06:59
Intake Total 1275 / 1275
Output Total 2195 / 2195
Balance -920 / -920
Intake:
Oral fluids 635 / 635
IV fluids (Total) 640 / 640
Normosol 100 / 100
Output:
Drain Output (Total) 145 / 145
Left Lower Abdomen Cholo- 145 / 145
[place]
Urine, Dumont 2049
Vital Signs
Temp Pulse Resp BP Pulse Ox
98.7 F 78 16 114/61 98
01/01/25 03:00 01/01/25 03:00 01/01/25 03:00 01/01/25 03:00 01/01/25 03:00
Lab Results
01/01/25 05:48
Calcium 8.5 mg/dl (8.4-10.2) 12/21/24 09:07
Total Bilirubin 0.4 mg/dl (0.2-1.3) 12/21/24 09:07
AST 38 U/L (17-59) 12/21/24 09:07
ALT 76 U/L (0-50) H 12/21/24 09:07
Alkaline Phosphatase 99 U/L (38-126) 12/21/24 09:07
Total Protein 6.4 g/dl (6.3-8.2) 12/21/24 09:07
Albumin 3.9 g/dl (3.5-5.0) 12/21/24 09:07
Physical Exam
-
NAD AAOx3
ABD: soft, ND mild incisional tenderness, no R/R/G
midline incision with glue dressing
DADA with SSF
[2025-01-01 06:49] LABS: Blood Urea Nitrogen 22 mg/dl (9-20); Calcium 7.8 mg/dl (8.4-10.2); Carbon Dioxide 19 mmol/L (22-30); Chloride 111 mmol/L (98-107); Estimated Creatinine Clearance 71 ml/min; Glucose 251 mg/dl (70-99); Potassium 5.1 mmol/L (3.5-5.1); Sodium 138 mmol/L (135-145); eGFR > 60.00
[2025-01-01 07:15] VITALS: BP 142/68
[2025-01-01 07:19] LABS: Glucose - Point of Care 222 mg/dl (70-99)
[2025-01-01] MEDS: NOVOLOG FLEXPEN-LOW RESISTANCE SC (07:30)
[2025-01-01] MEDS: HEPARIN 5000 UNITS SC ×2 (09:09→20:01)
[2025-01-01] MEDS: PRANDIN 4 MG PO ×2 (09:09→17:44)
[2025-01-01] MEDS: LASIX 20 MG PO (09:09)
[2025-01-01] MEDS: GLUCOPHAGE 1000 MG PO ×2 (09:09→20:01)
--- NOTE | 2025-01-01 09:26 | CM ---
CM following re: discharge planning.
Reviewed pt's chart, met with pt and pt's spouse at bedside.
Pt is an 79 year old male, admitted with SDC status and primary dx of POD#1 s/p open retrorectus mesh repair incisional hernia.
Pt reports he lives with spouse 2SH, 2 steps to enter, has supportive son who lives [place]. 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 No VN or SNF history.
CM consulted to arrange VN services for DADA drain care. CM discussed it with the pt and his spouse, VN choices list provided, [facility] preferred.
A referral to [facility] made.
Please fax discharge instructions to [facility] at [phone]
D/C plan: home when medically stable with [facility] and family support. Spouse to transport at discharge.
CM will follow with discharge plan updates as needed.
[2025-01-01] MEDS: TORADOL 10 MG IV ×2 (09:30→17:52)
--- NOTE | 2025-01-01 10:38 | VNURNOTE ---
Home Health Liaison met with patient and spouse at bedside to discuss [facility] nurse/therapy, visits, schedule and homebound status. They are agreeable and understand that visits at home will be 2-3 x per week to assess and teach medical and drain
management. Both are aware that [facility] will contact them for start of care in 1-2 days after discharge from .
[facility] referral completed in [facility].
[2025-01-01 11:10] VITALS: BP 134/81
[2025-01-01 12:17] LABS: Glucose - Point of Care 321 mg/dl (70-99)
[2025-01-01] MEDS: NOVOLOG FLEXPEN-LOW RESISTANCE 4 UNITS SC (12:49)
[2025-01-01] MEDS: EFFEXOR XR 150 MG PO (12:50)
[2025-01-01 15:10] VITALS: BP 126/70
[2025-01-01 16:49] LABS: Glucose - Point of Care 259 mg/dl (70-99)
[2025-01-01] MEDS: NOVOLOG FLEXPEN-LOW RESISTANCE 3 UNITS SC (17:45)
[2025-01-01 21:36] LABS: Glucose - Point of Care 250 mg/dl (70-99)
[2025-01-01] MEDS: TOPROL XL 25 MG PO (21:40)
[2025-01-01] MEDS: ASPIR LOW (ENTERIC COATED) 81 MG PO (21:41)
[2025-01-01] MEDS: XALATAN OPHTHALMIC SOLUTION 1 DROP BOTH EYES (21:42)
[2025-01-01 23:00] VITALS: BP 112/62
[2025-01-02 06:00] VITALS: BMI 18.6
[2025-01-02 06:05] LABS: Hematocrit 31.7 % (39.0-52.0); Hemoglobin 10.5 g/dL (13.0-18.0); Mean Corp Hgb Conc. 33.1 g/dL (33.0-37.0); Mean Corpuscular Hgb 31.4 pg (27.0-31.0); Mean Corpuscular Volume 94.9 fL (80.0-94.0); Mean Platelet Volume 10.1 fL (7.4-10.4); Platelet Count 207 10^3/uL (130-400); Red Blood Cell Count 3.34 10^6/uL (4.70-6.10); Red Cell Dist. Width 13.3 % (11.5-14.5); White Blood Cell Count 8.8 10^3/uL (4.8-10.8)
[2025-01-02 06:36] LABS: Blood Urea Nitrogen 20 mg/dl (9-20); Carbon Dioxide 21 mmol/L (22-30); Chloride 113 mmol/L (98-107); Estimated Creatinine Clearance 80 ml/min; Glucose 124 mg/dl (70-99); Potassium 4.2 mmol/L (3.5-5.1); Sodium 140 mmol/L (135-145); eGFR > 60.00
--- NOTE | 2025-01-02 06:57 | W.PN.GS2 ---
Today's Communication / Plan
-
`
Assessment / Plan
-
Assessment: 79 y/o male POD#2 s/p open retrorectus mesh repair incisional hernia (10cm)
AFVSS
doing well post op
DAAD expected character and quantity of output
hgb 11.9-1>10.5 - acute blood loss anemia secondary to surgical blood loss and also dilutional from IVFs
Plan: regular diet
home DM meds with diet advancement continue Accu checks/SSI
metoprolol/lasix home cards regiment
heparin for VTEp
home VN
dispo: d/c home
Subjective Data
-
Date of Service: January 02, 2025
pt seen and examined
at bedside
feels well, melissa diet, ambulated yesterday well, voiding after dumont out and pain controlled
+flatus, no BM
Objective Data
-
Intake and Output
12/31/24 01/01/25 01/02/25
06:59 06:59 06:59
Intake Total 1275 / 1275 540 / 540
Output Total 2195 / 2195 975 / 975
Balance -920 / -920 -435 / -435
Intake:
Oral fluids 635 / 635 540 / 540
IV fluids (Total) 640 / 640
Normosol 100 / 100
Output:
Drain Output (Total) 145 / 145 75 / 75
Left Lower Abdomen Cholo- 145 / 145 75 / 75
[place]
Urine, Dumont 2049
Urine, Voided 900 / 900
Other:
How many times incontinent 1
MODERATE amount urine
Vital Signs
Temp Pulse Resp BP Pulse Ox
98.9 F 100 18 112/62 95
01/01/25 23:00 01/01/25 23:00 01/01/25 23:00 01/01/25 23:00 01/01/25 23:00
Lab Results
01/02/25 05:13
01/02/25 05:13
Calcium 8.0 mg/dl (8.4-10.2) L 01/02/25 05:13
Total Bilirubin 0.4 mg/dl (0.2-1.3) 12/21/24 09:07
AST 38 U/L (17-59) 12/21/24 09:07
ALT 76 U/L (0-50) H 12/21/24 09:07
Alkaline Phosphatase 99 U/L (38-126) 12/21/24 09:07
Total Protein 6.4 g/dl (6.3-8.2) 12/21/24 09:07
Albumin 3.9 g/dl (3.5-5.0) 12/21/24 09:07
Physical Exam
-
NAD AAOx3
ABD: soft, ND, mild TTP only at incision
incision with glue dressing, no erythema, no drainage, no ecchymosis
DADA light SSF
[2025-01-02 07:05] LABS: Glucose - Point of Care 124 mg/dl (70-99)
[2025-01-02] MEDS: NOVOLOG FLEXPEN-LOW RESISTANCE SC (07:05)
[2025-01-02 07:10] VITALS: BP 115/74
--- NOTE | 2025-01-02 07:28 | W.DS.TRANS ---
Addendum entered and electronically signed by LADONNA Baum 01/04/25 10:12:
dictated #[id number]
Original Note:
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
-
Discharge Instructions:
Discharge Diagnosis/Procedures Incisional hernia. Open retrorectus mesh repair
incisional hernia
Diet As tolerated,Diabetic, Carb Controlled
Additional Diets Smaller meals initially after surgery as
abdominal bloating and distention may be common
for the first week postop
Activity No strenuous activity
Additional Activity No lifting over 20 pounds for 6 weeks after
surgery
Driving Restrictions No driving for 2 to 3 days or if using narcotics
Bathing Restrictions OK to Shower
Wound Care keep DADA to bulb suction. empty and keep paper
record of outputs 2x day and/or as needed. okay
to shower with DADA in place. remove gauze at
drain skin exit site and replace after showers.
Instructions: How to care for a closed suction drain
Stand-Alone Forms:
Changes to Home Medications: No
Discharge Medications:
DC Medications w/original date entered in [employer]
acetaminophen 300 mg-codeine 30 mg tablet 1 tab PO TIDPRN PRN Pain 02/22/24
aspirin 81 mg tablet,delayed release 81 mg PO HS Blood Clot Prevention/Tx 02/22/24
cyanocobalamin (vitamin B-12) 1,000 mcg tablet 2,000 mcg PO DAILY@2000 Supplement 02/22/24
latanoprost 0.005 % eye drops 1 drp BOTH EYES HS Eye Condition 02/22/24
repaglinide 0.5 mg tablet 1 mg PO QACDINNER 02/22/24
repaglinide 2 mg tablet 4 mg PO QACBREAK Diabetes 02/22/24
testosterone 2 pump topical DAILY Hormonal Agent 02/22/24
venlafaxine 150 mg capsule,extended release 24 hr 150 mg PO NOON Depression 02/22/24
atorvastatin 10 mg tablet 10 mg PO HS 12/24/24
ergocalciferol (vitamin D2) 1,250 mcg (50,000 unit) capsule (Vitamin D2) 1,250 mcg PO WE 12/24/24
furosemide 40 mg tablet 20 mg PO DAILY Heart Failure 12/24/24
metformin 1,000 mg tablet 1,000 mg PO BID Diabetes 12/24/24
metoprolol succinate 25 mg tablet,extended release 24 hr 25 mg PO HS 12/24/24
acetaminophen 325 mg tablet 650 mg (2 x 325 mg) PO Q4HPRN PRN mild pain #1 tab 01/01/25
polyethylene glycol 3350 17 gram/dose oral powder (Miralax) 4 g PO DAILY PRN Constipation #119 grams 01/01/25
repaglinide 4 PO QACLUNCH 01/01/25
Home Medication Changes
Pending Results: No
[2025-01-02 07:40] VITALS: BP 115/74
[2025-01-02] MEDS: GLUCOPHAGE 1000 MG PO (08:56)
[2025-01-02] MEDS: PRANDIN 4 MG PO (08:56)
[2025-01-02] MEDS: MIRALAX 17 GRAMS PO (08:57)
[2025-01-02] MEDS: HEPARIN 5000 UNITS SC (08:57)
[2025-01-02] MEDS: LASIX 20 MG PO (08:57)
--- NOTE | 2025-01-02 09:26 | CM ---
CM following re: discharge planning.
Reviewed pt's chart, met with pt and pt's spouse at bedside.
Discharge order noted. Both pt and his spouse are aware and they stated they met with [facility] liaison yesterday and spoke to [facility] S[place] who will provide care for DADA drain. Pt still SDC status, no IMM required.
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
Please fax discharge instructions to [facility] at [phone]
D/C plan: home with [facility] and family support. Spouse to transport.
== END 2025-01-02 11:38 | disposition home or self-care (01) ==
LOC: SDS 06:30
PROVIDERS: ATTENDING PHYSICIAN Surgery; FAMILY PHYSICIAN Family Medicine
DX: K43.2 Incisional hernia without obstruction or gangrene (principal)
CPT/HCPCS: 49593; 36415; 80048; 80053; 82962; 85027; C1781

== ENCOUNTER → 2025-03-28 13:01 | Outpatient (REF) | payer OTHER, SELFPAY | LOC: RCS 13:01 | PROVIDERS: ATTENDING PHYSICIAN Internal Medicine; FAMILY PHYSICIAN Family Medicine | DX: I10 Essential (primary) hypertension (principal); I42.8 Other cardiomyopathies; Z95.2 Presence of prosthetic heart valve | CPT/HCPCS: 93306 ==

== ENCOUNTER → 2025-05-29 08:54 | Outpatient (REF) | payer OTHER, SELFPAY | LOC: DHSLP 08:54 | PROVIDERS: ATTENDING PHYSICIAN Internal Medicine Critical Care Medicine; FAMILY PHYSICIAN Family Medicine | DX: G47.30 Sleep apnea, unspecified (principal); R06.83 Snoring | CPT/HCPCS: 95800 ==